=== PATIENT | male | born 1945 | race Caucasian/White ===

== ENCOUNTER 2021-04-23 11:48 | Inpatient (IN) ==
[2021-04-23 13:21] LABS: Hematocrit (blood only) 33.6 % (42-52); Hemoglobin 11.8 g/dL (14.0-18.0); Mean Corpuscular Hemoglobin 31.2 pg (25-34); Mean Corpuscular Hgb Conc 35.1 g/dL (32-36); Mean Corpuscular Volume 88.9 fL (80-100); Mean Platelet Volume 8.6 fL (7.4-10.4); Platelet Count 454 K/uL (130-400); RDW Standard Deviation 45.4 fL (36.4-46.3); Red Blood Count 3.78 M/uL (4.7-6.1); White Blood Count 14.44 K/uL (4.8-10.8)
[2021-04-23] MEDS ORDERED: SODIUM CHLORIDE 0.9% 1000ML 2,000 ML IV ONE (13:26)
[2021-04-23] MEDS ORDERED: ONDANSETRON INJ 2 MG/ML 2 ML VIAL IV STA (13:26)
[2021-04-23 13:42] LABS: BUN Creatinine Ratio 71.1 (10-20); Calcium 8.9 mg/dl (8.5-10.1); Est GFR (African American) 135.2 ml/min; Est GFR (Non-African American) 116.6 ml/min; Potassium 3.4 mmol/L (3.5-5.1)
--- NOTE | 2021-04-23 13:42 | Emergency Department Note ---
History of Present Illness General Chief complaint: Nausea Stated complaint: n/v/d Time Seen by Provider: 04/23/21 13:25 History of Present Illness Maximum Pain Intensity: 3 75-year-old male presents to the ED with a chief complaint of vomiting and diarrhea for the past couple of days. He states that his last episode of each was yesterday. He reports decreased energy. He has also had decreased p.o. intake and appetite for the past couple of days. He states that he has had some intermittent symptoms similar to this in the recent past as well. He reports history of alcohol abuse but stopped drinking alcohol 1995. The patient whispers because he states that he has some hoarseness of his voice from vomiting. He reports significantly generalized weakness. Home Medications Medication Instructions Recorded Confirmed Type FERROUS SULFATE 325 mg PO OCC #0 07/04/13 History CARVEDILOL (COREG) 6.25 mg PO BID 30 Days #0 tab 09/10/13 Rx DOCUSATE SODIUM (COLACE) 100 mg PO BID 30 Days #0 cap 09/10/13 Rx LISINOPRIL 5 mg PO QAM 30 Days #0 tab 09/10/13 Rx LORAZEPAM 1 mg PO BID 30 Days #0 tab 09/10/13 Rx MAGNESIUM OXIDE (MAG-OXIDE) 400 mg PO QAM 30 Days #0 tab 09/10/13 Rx Omeprazole (Prilosec) 40 mg PO DAILY #0 cap 07/15/14 History Oxycodone Ir (Roxicodone Ir) 5 mg PO Q6H PRN 10 Days #0 tab 07/15/14 Rx Ranitidine (Zantac) 150 mg PO DAILY #0 tab 07/15/14 History SENNOSIDES 1 tab PO DAILY #0 07/15/14 History Thiamine Hcl (Vitamin B-1) 100 mg PO DAILY #0 tab 07/15/14 History Lidocaine 1 patch TRANSDERMAL DAILY@09 PRN 07/19/14 Rx #20 Allergies Allergy/AdvReac Type Severity Reaction Status Date / Time gluten Allergy Intermediate Hx of Unverified 07/15/14 11:34 Celiac Disease Past Med/Surg History Social History Smoking Status: Former smoker Tobacco Type: Cigarettes Feels Safe at Home: Yes Review of Systems A total of 10 systems reviewed and were otherwise negative Physical Exam Vital Signs Vital Signs - 24 hr 08/01/21 11:47 04/23/21 15:06 Temperature 37.2 C Temperature Source Oral Pulse Rate 98 H Pulse Rate [Right Finger] 88 Respiratory Rate 26 H 20 Respiratory Effort / Characteristics Non-Labored Non-Labored Respiratory Depth Normal Normal Blood Pressure 94/72 L Blood Pressure [Right Arm] 129/82 Blood Pressure Mean 79 Blood Pressure Mean [Right Arm] 97 Pulse Oximetry 100 99 Oxygen Delivery Method Room Air Room Air Sepsis Recent Fever Within 48 Hours No Sepsis New/Unexplained Change in Mental Status N/A Sepsis Action Taken by Nursing No Action Required CONSTITUTIONAL/VITAL SIGNS: Reviewed / noted above. GENERAL: Non-toxic in appearance. Patient whispers when he speaks. INTEGUMENTARY: Warm, dry, and [place]. HEAD: Normocephalic. EYES: without scleral icterus or trauma. ENT/OROPHARYNX: clear and dry. LYMPHADENOPATHY/NECK: Is supple without lymphadenopathy or meningismus. RESPIRATORY: Clear to auscultation bilaterally. No increased work of breathing. CARDIOVASCULAR: Regular rate and rhythm. GI/ABDOMEN: Soft and nontender. There is a palpable mass noted in the right upper quadrant. It is nontender. EXTREMITIES: Warm and well perfused. BACK: No CVA tenderness. NEUROLOGICAL: Intact without focal deficits. PSYCHIATRIC: normal affect. MUSCULOSKELETAL: Normally developed with good muscle tone. TRIAGE NURSING DOCUMENTATION REVIEWED. Course Administered Medications Discontinued Medications Sodium Chloride (Nss 1000ml) 2,000 mls @ 999 mls/hr IV .Q2H1M ONE Stop: 04/23/21 15:26 Last Admin: 04/23/21 13:42 Dose: 999 mls/hr Documented by: [id number] Ioversol (Optiray 320 100ml) 93 ml IV ONCE ONE Stop: 04/23/21 13:44 Last Admin: 04/23/21 13:43 Dose: 93 ml Documented by: [id number] Ondansetron HCl (Ondansetron Inj 2 Mg/Ml 2 Ml Vial) 4 mg IV NOW STA Stop: 04/23/21 13:27 Last Admin: 04/23/21 13:42 Dose: 4 mg Documented by: [id number] Medical Decision Making Differential Diagnosis Differential includes acute coronary syndrome, myocardial infarction, CVA, TIA, anemia, infection, pneumonia, UTI, pyelonephritis, poor nutrition, dehydration, electrolyte disturbance,hypoglycemia. Medical Records Attestation: I reviewed the patient's medical records. Home Medications Current Medication List: was personally reviewed by me Laboratory Data Attestation: I reviewed the patient's lab results. Result diagrams: 04/23/21 13:10 04/23/21 13:10 Lab Results 04/23/21 04/23/21 04/23/21 Range/Units 13:10 13:10 14:11 WBC 14.44 H (4.8-10.8) K/uL RBC 3.78 L (4.7-6.1) M/uL Hgb 11.8 L (14.0-18.0) g/dL Hct 33.6 L (42-52) % MCV 88.9 (80-100) fL MCH 31.2 (25-34) pg MCHC 35.1 (32-36) g/dL RDW Std Deviation 45.4 (36.4-46.3) fL RDW Coeff of [place] 14.0 (11.5-14.5) % Plt Count 454 H (130-400) K/uL MPV 8.6 (7.4-10.4) fL Immature Gran % (Auto) 0.4 % Neut % (Auto) 84.7 % Lymph % (Auto) 8.4 % [place] % (Auto) 6.4 % Eos % (Auto) 0.0 % Baso % (Auto) 0.1 % Neut # (Auto) 12.23 H (1.4-6.5) K/uL Lymph # (Auto) 1.22 (1.2-3.4) K/uL [place] # (Auto) 0.92 H (0.11-0.59) K/uL Eos # (Auto) 0.00 (0-0.5) K/uL Baso # (Auto) 0.01 (0-0.2) K/uL Immature Gran # (Auto) 0.06 H (0.00-0.02) K/uL PT 14.2 H (9.0-12.0) Seconds INR 1.4 H (0.9-1.1) Sodium 129 L (136-145) mmol/L Potassium 3.4 L (3.5-5.1) mmol/L Chloride 93 L (98-107) mmol/L Carbon Dioxide 29 (21-32) mmol/L Anion Gap 7.0 (3-11) BUN 29 H (7-18) mg/dl Creatinine 0.41 L (0.6-1.4) mg/dl Est Cr Clr Drug Dosing 150.0 ml/min Est GFR ( Amer) 135.2 ml/min Est GFR (Non-Af Amer) 116.6 ml/min BUN/Creatinine Ratio 71.1 H (10-20) Glucose 126 H (70-99) mg/dl Calcium 8.9 (8.5-10.1) mg/dl Total Bilirubin 1.2 H (0.2-1) mg/dl AST 96 H (15-37) U/L ALT 34 (12-78) U/L Alkaline Phosphatase 220 H (45-117) U/L Total Protein 6.1 L (6.4-8.2) gm/dl Albumin 3.0 L (3.4-5.0) gm/dl Globulin 3.1 (2.5-4.0) gm/dl Albumin/Globulin Ratio 1.0 (0.9-2) Lipase 128 (73-393) U/L Imaging Data Radiologist's Impression: Abdomen/Pelvis CT 04/23/21 13:[address] WITH IV CONTRAST CT DOSE: 477.29 mGycm HISTORY: Acute nausea with vomiting and right upper quadrant abdominal pain v/d, lump in ruq TECHNIQUE: Multiaxial CT images of the abdomen and pelvis were performed following the IV administration of 93 cc of Optiray, A dose lowering technique was utilized adhering to the principles of ALARA. COMPARISON STUDY: Chest radiograph 03/06/2015, CTA chest 07/05/2014, CT abdomen and pelvis 11/30/2008. FINDINGS: Calcified granulomata of the left lung base with calcified hilar lymph nodes. Trace layering pleural effusions. Consolidation of the medial segment right middle lobe suggestive of atelectasis. No pneumatosis or pneumoperitoneum. Imaged inferior cardiac chambers are unremarkable with coronary artery calcifications. Unremarkable spleen and adrenal glands. Moderately distended gallbladder. There is a 1.3 cm cystic structure of the pancreatic tail with 11 mm cystic structure of the uncinate process of the pancreatic head, possibly brand representative of sidebranch IPMN's. No pancreatic ductal dilation or solid mass lesion identified. Innumerable hepatic coalescing lesions suggestive of metastasis with areas of suggested central necrosis measure up to 10 mm within the right hepatic lobe resulting in marginal nodularity of the liver suggestive of pseudocirrhosis. There are a few calcified nodules also noted throughout the liver. Trace perihepatic ascites. No portal vein occlusion identified. 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 Age-indeterminate occlusion of the superior mesenteric vein. 6 mm hypodensity of the superior pole left kidney is too small to characterize however suggestive of a probable cyst. Moderate urinary bladder distention with 2.5 mm posterior lateral diverticulum. Prostamegaly. Atherosclerosis of the tortuous aorta. Intrahepatic IVC filter. Coronary varices of the proximal stomach. Mild wall thickening of the duodenum. Lobular irregular mass of the rectum measures 4.2 x 2.8 x 5.2 cm. There is prominence of the perirectal vascul ature with perirectal inflammatory stranding and several small perirectal nodules. No perforation or fluid collection. Colonic diverticulosis. Normal appendix. Tiny fat filled periumbilical hernia. Degenerative changes of the spine, pelvis and hips. No suspicious lytic or blastic osseous lesions pearl ntified. Healed chronic left-sided rib fractures. Numerous compression deformities throughout the thoracolumbar spine without retropulsion are favored to be chronic. IMPRESSION: 1. Rectal mass measuring over 5 cm in length is suggestive of colorectal carcinoma. No perforation or bowel obstruction. 2. 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 3. Trace pleural effusions. 4. 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 Age-indeterminate occlusion of the superior mesenteric vein. 5. Prostamegaly with chronic bladder outlet obstruction. 6. Additional findings as above. ACT 112: Negative or not required by law. The above report was generated using voice recognition software. It may contain grammatical, syntax or spelling errors. Electronically signed by: Hieu Horton M.D. 04/23/2021 2:34 PM ECG Data Attestation: I personally reviewed and interpreted this ECG as follows: MDM Narrative Patient presents with vomiting diarrhea for the past couple of days. None today. Decreased energy. Also reports a mass in the right upper quadrant. Vital signs reveal blood pressure of 94/72. Heart rate 98. He is in no distress on my exam. Does have a mass that is palpable in the right upper quadrant. No abdominal tenderness. Lips and mouth look dry. The patient's hemoglobin today is 11.8. White blood cell count is 14.4. Sodium is 129. BUN is 29. Lipase is negative. INR is 1.4. CT scan of the abdomen pelvis reveals a 5 cm rectal mass suggestive of colorectal cancer and hepatic metastasis. The patient was given IV fluids and IV Zofran. Because of his weakness and the abnormal test results, the patient will be seen by the hospitalist for further inpatient evaluation and care. Impression & Plan Carcinoma of rectum, Metastatic cancer, Nausea vomiting and diarrhea, Generalized muscle weakness, Acute hyponatremia, Acute dehydration Discharge Plan Visit Data Chief Complaint: Nausea Stated Complaint: n/v/d ED Provider: Arnaldo Damon Discharge Problem: Carcinoma of rectum, Metastatic cancer, Nausea vomiting and diarrhea, Generalized muscle weakness, Acute hyponatremia, Acute dehydration Patient Disposition: Being Evaluated by Hospitalist Forms Stand Alone Forms: [facility] Emergency Department, [facility] ortant Visit Information Prescriptions Prescriptions: No Action FERROUS SULFATE 325 MG tablet 325 mg PO OCC Qty: 0 RF: 0 CARVEDILOL (COREG) 3.125 MG tablet 6.25 mg PO BID 30 Days Qty: 0 RF: 0 DOCUSATE SODIUM (COLACE) 100 MG capsule 100 mg PO BID 30 Days Qty: 0 RF: 0 LISINOPRIL 2.5 MG tablet 5 mg PO QAM 30 Days Qty: 0 RF: 0 LORAZEPAM 1 MG tablet 1 mg PO BID 30 Days Qty: 0 RF: 0 MAGNESIUM OXIDE (MAG-OXIDE) 400 MG tablet 400 mg PO QAM 30 Days Qty: 0 RF: 0 Omeprazole (Prilosec) 40 MG CONTR REL CAP 40 mg PO DAILY Qty: 0 RF: 0 Ranitidine (Zantac) 150 MG tablet 150 mg PO DAILY Qty: 0 RF: 0 SENNOSIDES 8.6 MG tablet 1 tab PO DAILY Qty: 0 RF: 0 Thiamine Hcl (Vitamin B-1) 100 MG tablet 100 mg PO DAILY Qty: 0 RF: 0 Oxycodone Ir (Roxicodone Ir) 5 MG tablet 5 mg PO Q6H PRN (Reason: Breakthrough Pain) 10 Days Qty: 0 RF: 0 Lidocaine 1 PATCH TRANSDERM SYS 1 patch Transdermal DAILY@09 PRN (Reason: back pain) Qty: 20 RF: 0 Referrals Referrals: Bakari Cosby MD [Primary Care Provider] -
[2021-04-23] MEDS ORDERED: OPTIRAY 320 100ml IV ONE (13:43)
[2021-04-23 13:45] LABS: Basophils # (auto) 0.01 K/uL (0-0.2); Basophils % (auto) 0.1 %; Bilirubin,Total 1.2 mg/dl (0.2-1); Globulin 3.1 gm/dl (2.5-4.0); Immature Granulocytes # (auto) 0.06 K/uL (0.00-0.02); Immature Granulocytes % (auto) 0.4 %; Lymphocytes # (auto) 1.22 K/uL (1.2-3.4); Lymphocytes % (auto) 8.4 %; Monocytes # (auto) 0.92 K/uL (0.11-0.59); Monocytes % (auto) 6.4 %; Neutrophils # (auto) 12.23 K/uL (1.4-6.5); Neutrophils % (auto) 84.7 %; Total Protein 6.1 gm/dl (6.4-8.2)
--- NOTE | 2021-04-23 14:35 | CT Scan Report ---
ABDOMEN AND PELVIS CT WITH IV CONTRAST CT DOSE: 477.29 mGycm HISTORY: Acute nausea with vomiting and right upper quadrant abdominal pain v/d, lump in ruq TECHNIQUE: Multiaxial CT images of the abdomen and pelvis were performed following the IV administrat ion of 93 cc of Optiray, A dose lowering technique was utilized adhering to the principles of ALARA. COMPARISON STUDY: Chest radiograph 03/06/2015, CTA chest 07/05/2014, CT abdomen and pelvis 11/30/2008. FINDINGS: Calcified granulomata of the left lung base with calcified hilar lymph nodes. Trace layerin g pleural effusions. Consolidation of the medial segment right middle lobe suggestive of atelectasis. No pneumatosis or pneumoperitoneum. Imaged inferior cardiac chambers are unremarkable with coronary artery calcifications. Unremarkable spleen and adrenal glands. Moderately distended gallbladder. There is a 1.[address] ructure of the pancreatic tail with 11 mm cystic structure of the uncinate process of the pancreatic head, possibly guest service representative of sidebranch IPMN's. No pancreatic ductal dilation or solid mass lesio n identified. Innumerable hepatic coalescing lesions suggestive of metastasis with areas of suggested central necrosis measure up to 10 mm within the right hepatic lobe resulting in marginal nodularity of the liver suggestive of pseudocirrhosis. There are a few calcified nodules also noted throughout t he liver. Trace perihepatic ascites. No portal vein occlusion identified. 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 Age-i ndeterminate occlusion of the superior mesenteric vein. 6 mm hypodensity of the superior pole left kidney is too small to characterize however suggestive of a probable cyst. Moderate urinary bladder distention with 2.5 mm posterior lateral diverticulum. Pros tamegaly. Atherosclerosis of the tortuous aorta. Intrahepatic IVC filter. Coronary varices of the pro ximal stomach. Mild wall thickening of the duodenum. Lobular irregular mass of the rectum measures 4. 2 x 2.8 x 5.2 cm. There is prominence of the perirectal vasculature with perirectal inflammatory stra nding and several small perirectal nodules. No perforation or fluid collection. Colonic diverticulosi s. Normal appendix. Tiny fat filled periumbilical hernia. Degenerative changes of the spine, pelvis a nd hips. No suspicious lytic or blastic osseous lesions identified. Healed chronic left-sided rib fra ctures. Numerous compression deformities throughout the thoracolumbar spine without retropulsion are favored to be chronic. IMPRESSION: 1. Rectal mass measuring over 5 cm in length is suggestive of colorectal carcinoma. No perforation or bowel obstruction. 2. 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 3. Trace pleural effusions. 4. 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 Age-indeterminate occlusion of the superior mesenteric vein. 5. Prostamegaly with chronic bladder outlet obstruction. 6. Additional findings as above. ACT 112: Negative or not required by law. The above report was generated using voice recognition software. It may contain grammatical, syntax o r spelling errors. Electronically signed by: Hieu Horton M.D. 04/23/2021 2:34 PM
[2021-04-23 14:48] LABS: INR 1.4 (0.9-1.1); Prothrombin Time 14.2 Seconds (9.0-12.0)
--- NOTE | 2021-04-23 17:27 | History & Physical Report ---
Date of Service April 23, 2021 Assessment & Plan (1) Rectal mass: (2) Metastasis to liver: Plan: This is a 75-year-old male with PMH of history of remote alcohol use with history of esophageal varices, presence of IVC filter, hypertension, hyperlipidemia, anxiety, history of celiac disease, chronic lower back pain and other medical problems listed below who presents with worsening nausea, vomiting and diarrhea over the past few days. CT abd/pelvis with rectal mass measuring over 5 cm in length is suggestive of colorectal carcinoma. 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 Patient seen in collaboration with Dr. Brown. Please see addendum. History of Present Illness Chief Complaint: N/V/D Primary Care Provider: Bakari Cosby MD This is a 75-year-old male with PMH of history of remote alcohol use with history of esophageal varices, presence of IVC filter, hypertension, hyperlipidemia, anxiety, history of celiac disease, chronic lower back pain and other medical problems listed below who presents with worsening nausea, vomiting and diarrhea over the past few days. Endorses intermittent nausea, vomiting and diarrhea over the past 2 months. Also with unintentional weight loss of approximately 40 pounds over past 1.5 years per recent PCP note. Palpable mass on R abdominal wall noticed in the past 2 months. Having difficulty remembering details, which has been getting worse lately. Denies any bright red blood per rectum or black stool. Mainly having diarrhea. Reduced appetite. Taking home meds as scheduled. PCP Dr. Cosby. Allergies Allergy/AdvReac Type Severity Reaction Status Date / Time gluten Allergy Intermediate Hx of Unverified 04/23/21 16:09 Celiac Disease Home Medications Medication Instructions Recorded Confirmed Type albuterol sulfate 90 mcg/actuation 2 puff INHALATION Q4H PRN 04/23/21 04/23/21 History aerosol inhaler ferrous sulfate 325 mg (65 mg 325 mg PO DAILY 04/23/21 04/23/21 History iron) tablet magnesium oxide 400 mg PO DAILY 04/23/21 04/23/21 History omeprazole 40 mg capsule,delayed 40 mg PO DAILY 04/23/21 04/23/21 History release thiamine HCl (vitamin B1) 100 mg 100 mg PO DAILY 04/23/21 04/23/21 History tablet (Vitamin B-1) lorazepam 1 mg tablet 1 mg PO BID #10 tab 05/02/21 Rx oxycodone 5 mg tablet 5 mg PO Q6H PRN #20 tab 05/02/21 Rx Past Med/Surg History Medical History Acute dehydration Acute hyponatremia Anxiety Celiac disease Chronic back pain Dyslipidemia HTN (hypertension) Metastasis to liver Pulmonary embolus Rectal mass Surgical History History of inferior vena caval filter placement Hx of tonsillectomy Family History Other Cancer Hypertension Social History Smoking Status: Former smoker Tobacco Type: Cigarettes Second Hand Exposure: No; Hx Alcohol Use: No (Quit 2015) Hx Substance Use: No Preferred Language: Nigerien Communication Ability: Effective 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 Physical Exam Physical Exam: General Appearance: vitals as above, NAD, sitting up in bed, pleasant, appears chronically ill Head: normocephalic, atraumatic Eyes: normal inspection, PERRL, conjunctivae normal, anicteric sclerae ENT: external ear and nose normal, dry mucous membranes of oropharynx Neck: normal visual inspection, trachea midline, no thyromegaly Respiratory: normal respiratory effort, lungs clear to auscultation, no wheeze, rales, rhonchi. No accessory muscle use Cardiovascular: regular rate, rhythm, no murmur, normal peripheral pulses, no BLE edema. Vessels: no JVD Chest: normal inspection of chest Abdomen/GI: normal bowel sounds, soft, nontender, palpable mass RLQ Extremities/Musculoskeletal: no cyanosis or clubbing, extremities motor strength 5/5 Neurologic: PERRL, EOMI, accommodation nl, no face palsy, no dysarthria, CN's II-XI intact bilaterally and moves all extremities Psychiatric: A+Ox3, euthymic affect Skin: no rashes, normal color, warm/dry Results & Data Results & Data ([facility]) Vital Signs (Past 12 Hours) Vital Signs Temp Pulse Pulse Resp BP BP Pulse Ox 04/23/21 16:56 74 16 130/85 96 04/23/21 15:06 88 20 129/82 99 04/23/21 11:47 37.2 C 98 H 26 H 94/72 L 100 Laboratory Results Short CBC 04/23/21 Range/Units 13:10 WBC 14.44 H (4.8-10.8) K/uL Hgb 11.8 L (14.0-18.0) g/dL Hct 33.6 L (42-52) % Plt Count 454 H (130-400) K/uL BMP 04/23/21 13:10 Sodium 129 L Potassium 3.4 L Chloride 93 L Carbon Dioxide 29 BUN 29 H Creatinine 0.41 L Glucose 126 H Calcium 8.9 Liver Function 04/23/21 Range/Units 13:10 Total Bilirubin 1.2 H (0.2-1) mg/dl AST 96 H (15-37) U/L ALT 34 (12-78) U/L Alkaline Phosphatase 220 H (45-117) U/L Albumin 3.0 L (3.4-5.0) gm/dl Diagnostic Findings Abdomen/Pelvis CT 04/23/21 13:[address] WITH IV CONTRAST CT DOSE: 477.29 mGycm HISTORY: Acute nausea with vomiting and right upper quadrant abdominal pain v/d, lump in ruq TECHNIQUE: Multiaxial CT images of the abdomen and pelvis were performed following the IV administration of 93 cc of Optiray, A dose lowering technique was utilized adhering to the principles of ALARA. COMPARISON STUDY: Chest radiograph 03/06/2015, CTA chest 07/05/2014, CT abdomen and pelvis 11/30/2008. FINDINGS: Calcified granulomata of the left lung base with calcified hilar lymph nodes. Trace layering pleural effusions. Consolidation of the medial segment right middle lobe suggestive of atelectasis. No pneumatosis or pneumoperitoneum. Imaged inferior cardiac chambers are unremarkable with coronary artery calcifications. Unremarkable spleen and adrenal glands. Moderately distended gallbladder. There is a 1.3 cm cystic structure of the pancreatic tail with 11 mm cystic structure of the uncinate process of the pancreatic head, possibly senior sales representative of sidebranch IPMN's. No pancreatic ductal dilation or solid mass lesion identified. Innumerable hepatic coalescing lesions suggestive of metastasis with areas of suggested central necrosis measure up to 10 mm within the right hepatic lobe resulting in marginal nodularity of the liver suggestive of pseudocirrhosis. There are a few calcified nodules also noted throughout the liver. Trace perihepatic ascites. No portal vein occlusion identified. 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 Age-indeterminate occlusion of the superior mesenteric vein. 6 mm hypodensity of the superior pole left kidney is too small to characterize however suggestive of a probable cyst. Moderate urinary bladder distention with 2.5 mm posterior lateral diverticulum. Prostamegaly. Atherosclerosis of the tortuous aorta. Intrahepatic IVC filter. Coronary varices of the proximal stomach. Mild wall thickening of the duodenum. Lobular irregular mass of the rectum measures 4.2 x 2.8 x 5.2 cm. There is prominence of the perirectal vasculature with perirectal inflammatory stranding and several small perirectal nodules. No perforation or fluid collection. Colonic diverticulosis. Normal appendix. Tiny fat filled periumbilical hernia. Degenerative changes of the spine, pelvis and hips. No suspicious lytic or blastic osseous lesions identified. Healed chronic left-sided rib fractures. Numerous compression deformities throughout the thoracolumbar spine without retropulsion are favored to be chronic. IMPRESSION: 1. Rectal mass measuring over 5 cm in length is suggestive of colorectal carcinoma. No perforation or bowel obstruction. 2. 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 3. Trace pleural effusions. 4. 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 Age-indeterminate occlusion of the superior mesenteric vein. 5. Prostamegaly with chronic bladder outlet obstruction. 6. Additional findings as above. ACT 112: Negative or not required by law. The above report was generated using voice recognition software. It may contain grammatical, syntax or spelling errors. Electronically signed by: Hieu Horton M.D. 04/23/2021 2:34 PM Code Status & VTE Plan VTE Prophylaxis Plan VTE Prophylaxis will be ordered: Yes Supervising Physician Co-Signing Physician Notes Pt was seen and examined. Agreed with Melia Campbell PA-C exam, assessment and paige n. 75-year-old male with PMH of history of remote alcohol use with history of esophageal varices, presence of IVC filter, hypertension, hyperlipidemia, anxiety, history of celiac disease, chronic lower back pain presents with worsening nausea, vomiting and diarrhea over the past few days. Pt said that he he has been having diarrhea, nausea and vomiting for over 2 months. He has not been able to keep anything in his belly. Pt loss about 40 lbs in the past year. he said that he noticed his stool has been dark brown. He voice his soft and hoarse from vomiting alot. In the ER CT abd/pelvis showed rectal mass measuring over 5 cm in length is suggestive of colorectal carcinoma. No perforation or bowel obstruction. 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 Received IVF and antiemetic med. Electrolytes replaced. Continue IV med. Will start on clear liquid diet and NPO after midnight. Will consult gastro and oncology in am. Continue monitor electrolytes. Will monitor closely. MD Kevin
[2021-04-23] MEDS ORDERED: ALBUTEROL HFA 8 GM INHALER INH PRN (20:26)
[2021-04-23] MEDS ORDERED: POTASSIUM CHLORIDE 40 MEQ in SODIUM CHLORIDE 0.9% 1000ML 1,000 ML IV SCH (20:26)
[2021-04-23] MEDS ORDERED: ONDANSETRON INJ 2 MG/ML 2 ML VIAL IV PRN (20:26)
[2021-04-23] MEDS: ENOXAPARIN INJ 40 MG/0.4 ML SYR SQ SCH (22:03)
[2021-04-23] MEDS: LORazepam 1 MG TAB PO SCH (22:04)
[2021-04-24 06:24] LABS: Hematocrit (blood only) 30.7 % (42-52); Hemoglobin 10.5 g/dL (14.0-18.0); Mean Corpuscular Hemoglobin 31.3 pg (25-34); Mean Corpuscular Hgb Conc 34.2 g/dL (32-36); Mean Corpuscular Volume 91.4 fL (80-100); Mean Platelet Volume 8.9 fL (7.4-10.4); Platelet Count 339 K/uL (130-400); RDW Coefficient of Variation 14.3 % (11.5-14.5); RDW Standard Deviation 47.5 fL (36.4-46.3); Red Blood Count 3.36 M/uL (4.7-6.1); White Blood Count 13.59 K/uL (4.8-10.8)
[2021-04-24 06:46] LABS: Albumin Globulin Ratio 0.9 (0.9-2); Albumin Level 2.6 gm/dl (3.4-5.0); BUN Creatinine Ratio 40.9 (10-20); Calcium 8.3 mg/dl (8.5-10.1); Creatinine Clr Calc Pharmacy 148.4 ml/min; Est GFR (African American) 135.2 ml/min; Est GFR (Non-African American) 116.6 ml/min; Globulin 2.8 gm/dl (2.5-4.0); Potassium 3.6 mmol/L (3.5-5.1); Total Protein 5.4 gm/dl (6.4-8.2)
[2021-04-24] MEDS: THIAMINE HCL 100 MG TAB PO SCH (08:38)
[2021-04-24] MEDS: lisinopril 5 MG TAB PO SCH (08:38)
[2021-04-24] MEDS: MAGNESIUM OXIDE 400 MG TAB PO SCH (08:39)
[2021-04-24] MEDS: FERROUS SULFATE 325 MG TAB PO SCH (08:39)
[2021-04-24] MEDS: PANTOprazole 40 MG TAB PO SCH (08:39)
--- NOTE | 2021-04-24 08:48 | Gastrointestinal Consultation ---
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 He is deferring examination. I did ask hi m to think about diagnostic endoscopy and to let our service know. He did ask me to call his , I was able to reach her and discuss. She notes their daughter is en route to [place] and would discuss with her father when she arrives. Recall as needed. Thank you for allowing us to participate in the care of this patient. Please call with any acute changes, questions or concerns. Please see addendum below with additional recommendation from my supervising physician. Supervising Physician Co-Signing Physician Notes I have seen and examined the patient with BILL Reagan whose note reflects our findings and plan. Patient with multiple comorbidities including cirrhosis admitted with nuasea and vomiting noted to have large rectal mass on imaging and lesions in the liver. Never had a colonoscopy. abd exam with palpable mass. Patient cardona snot want a colonoscopy but has agreed to discuss further with his daughter and . attempted to discuss with but she is unsure and will talk with her . History of Present Illness Reason for Consultation: colon mass Requesting Physician: Kevin Attending Physician: Lance Brown MD History of Present Illness 75 year old male with history of dyslipidemia, cirrhosis, celiac other below who is admitted w/ vomiting and diarrhea - GI asked to evaluate for rectal mass. Pt is a poor historian. Notes that he has had decreased appetite and weight loss for sometime but cannot specify how long or how much weight. Review of records suggests nearly 45 lbs. Over the past few days has had emesis and loose stools but denies any coffee ground emesis, hematemesis, melena or hematochezia. No fever, chills, CP, SOB. CTAP 2020: Rectal mass measuring over 5 cm in length is suggestive of colorectal carcinoma. No perforation or bowel obstruction. 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 Age-indeterminate occlusion of the superior mesenteric vein.Prostamegaly with chronic bladder outlet obstruction. [id number]: LA Grade D reflux esophagitis. - Hiatus hernia. - Type 1 isolated gastric varices (IGV1, varices located in the fundus), without bleeding. - One duodenal ulcer in the third portion oozing blood. Injected. Coagulation for hemostasis was successful. EGD 2012: Moderately severe distal esophagitis. - Hiatus hernia. - Type 1 isolated gastric varices (IGV1, varices located in the fundus), with retained clips. - Nodular mucosa at 2nd part of the duodenum. Biopsied. EGD 2012: Esophagitis, with ring at GE junction and shallow GE junction ulcer. No esophageal varices. No active bleeding. Small gastric varices in proximal body of stomach. Prominent fold (gastric varix) in fundus of stomach with small ulcer and pigmented spot. This was clipped. Hemostasis was achieved. Duodenal changes suggestive of sprue or portal enteropathy. Allergies Allergy/AdvReac Type Severity Reaction Status Date / Time gluten Allergy Intermediate Hx of Unverified 04/23/21 16:09 Celiac Disease Home Medications Medication Instructions Recorded Confirmed Type albuterol sulfate 90 mcg/actuation 2 puff INHALATION Q4H PRN 04/23/21 04/23/21 History aerosol inhaler ferrous sulfate 325 mg (65 mg 325 mg PO DAILY 04/23/21 04/23/21 History iron) tablet lisinopril 5 mg tablet 5 mg PO DAILY 04/23/21 04/23/21 History lorazepam 1 mg tablet 1 mg PO BID 04/23/21 04/23/21 History magnesium oxide 400 mg PO DAILY 04/23/21 04/23/21 History omeprazole 40 mg capsule,delayed 40 mg PO DAILY 04/23/21 04/23/21 History release oxycodone 5 mg tablet 5 mg PO Q6H PRN 04/23/21 04/23/21 History thiamine HCl (vitamin B1) 100 mg 100 mg PO DAILY 04/23/21 04/23/21 History tablet (Vitamin B-1) Patient History Medical History (Updated 04/23/21 @ 19:08 by Melia Campbell PA-C) Anxiety Celiac disease Chronic back pain Dyslipidemia HTN (hypertension) Pulmonary embolus Surgical History (Updated 04/23/21 @ 19:06 by Melia Campbell PA-C) History of inferior vena caval filter placement Hx of tonsillectomy Family History Other Cancer Hypertension Social History (Updated 04/23/21 @ 19:07 by Melia Campbell PA-C) Smoking Status: Former smoker Tobacco Type: Cigarettes Second Hand Exposure: No; Do You Dip or Chew Tobacco: No; Tobacco Cessation Education Requested by Patient: No Hx Alcohol Use: No Hx Substance Use: No Preferred Language: Upper Sorbian Communication Ability: Effective 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 Beliefs That Will Affect Care: None Current Living Situation: Spouse Other Information That Helps Us Care for You: No Feels Safe at Home: Yes Safety Concerns: Feels Safe At This Time Assistive Devices: Glasses Review of Systems Review of Systems: All systems reviewed & are unremarkable except as noted in HPI & below Physical Exam Constitutional: Pt appears chronically ill, cachetic but in no acute distress Respiratory: normal respiratory effort, lungs clear to auscultation Cardiovascular: RRR, no murmur, no edema Gastrointestinal (Abdomen): Soft, nontender, palpable mass R abd Skin: no rashes, warm and dry Results & Data ([facility]) Vital Signs (Past 12 Hours) Vital Signs Temp Pulse Pulse Resp BP Pulse Ox 04/24/21 07:46 67 04/24/21 07:41 36.8 C 77 16 120/68 92 04/24/21 03:04 36.5 C 62 18 137/72 96 04/23/21 23:08 36.6 C 93 H 18 133/75 99 04/23/21 21:33 36.9 C 78 127/78 98 Laboratory Results 04/24/21 04/24/21 04/23/21 Range/Units 05:53 05:53 17:30 WBC 13.59 H (4.8-10.8) K/uL RBC 3.36 L (4.7-6.1) M/uL Hgb 10.5 L (14.0-18.0) g/dL Hct 30.7 L (42-52) % MCV 91.4 (80-100) fL MCH 31.3 (25-34) pg MCHC 34.2 (32-36) g/dL RDW Std Deviation 47.5 H (36.4-46.3) fL RDW Coeff of Soraida 14.3 (11.5-14.5) % Plt Count 339 (130-400) K/uL MPV 8.9 (7.4-10.4) fL Immature Gran % (Auto) % Neut % (Auto) % Lymph % (Auto) % Centre % (Auto) % Eos % (Auto) % Baso % (Auto) % Neut # (Auto) (1.4-6.5) K/uL Lymph # (Auto) (1.2-3.4) K/uL Centre # (Auto) (0.11-0.59) K/uL Eos # (Auto) (0-0.5) K/uL Baso # (Auto) (0-0.2) K/uL Immature Gran # (Auto) (0.00-0.02) K/uL PT (9.0-12.0) Seconds INR (0.9-1.1) Sodium 137 D (136-145) mmol/L Potassium 3.6 (3.5-5.1) mmol/L Chloride 102 (98-107) mmol/L Carbon Dioxide 28 (21-32) mmol/L Anion Gap 7.0 (3-11) BUN 17 (7-18) mg/dl Creatinine 0.41 L (0.6-1.4) mg/dl Est Cr Clr Drug Dosing 148.4 ml/min Est GFR ( Amer) 135.2 ml/min Est GFR (Non-Af Amer) 116.6 ml/min BUN/Creatinine Ratio 40.9 H (10-20) Glucose 92 (70-99) mg/dl Calcium 8.3 L (8.5-10.1) mg/dl Total Bilirubin 1.0 (0.2-1) mg/dl AST 104 H (15-37) U/L ALT 31 (12-78) U/L Alkaline Phosphatase 221 H (45-117) U/L Total Protein 5.4 L (6.4-8.2) gm/dl Albumin 2.6 L (3.4-5.0) gm/dl Globulin 2.8 (2.5-4.0) gm/dl Albumin/Globulin Ratio 0.9 (0.9-2) Lipase (73-393) U/L COVID-19 Eval Order SARS-CoV-2 (PCR) NEGATIVE (Negative) 04/23/21 04/23/21 04/23/21 Range/Units 17:30 14:11 13:10 WBC (4.8-10.8) K/uL RBC (4.7-6.1) M/uL Hgb (14.0-18.0) g/dL Hct (42-52) % MCV (80-100) fL MCH (25-34) pg MCHC (32-36) g/dL RDW Std Deviation (36.4-46.3) fL RDW Coeff of Soraida (11.5-14.5) % Plt Count (130-400) K/uL MPV (7.4-10.4) fL Immature Gran % (Auto) % Neut % (Auto) % Lymph % (Auto) % Centre % (Auto) % Eos % (Auto) % Baso % (Auto) % Neut # (Auto) (1.4-6.5) K/uL Lymph # (Auto) (1.2-3.4) K/uL Centre # (Auto) (0.11-0.59) K/uL Eos # (Auto) (0-0.5) K/uL Baso # (Auto) (0-0.2) K/uL Immature Gran # (Auto) (0.00-0.02) K/uL PT 14.2 H (9.0-12.0) Seconds INR 1.4 H (0.9-1.1) Sodium 129 L (136-145) mmol/L Potassium 3.4 L (3.5-5.1) mmol/L Chloride 93 L (98-107) mmol/L Carbon Dioxide 29 (21-32) mmol/L Anion Gap 7.0 (3-11) BUN 29 H (7-18) mg/dl Creatinine 0.41 L (0.6-1.4) mg/dl Est Cr Clr Drug Dosing 150.0 ml/min Est GFR ( Amer) 135.2 ml/min Est GFR (Non-Af Amer) 116.6 ml/min BUN/Creatinine Ratio 71.1 H (10-20) Glucose 126 H (70-99) mg/dl Calcium 8.9 (8.5-10.1) mg/dl Total Bilirubin 1.2 H (0.2-1) mg/dl AST 96 H (15-37) U/L ALT 34 (12-78) U/L Alkaline Phosphatase 220 H (45-117) U/L Total Protein 6.1 L (6.4-8.2) gm/dl Albumin 3.0 L (3.4-5.0) gm/dl Globulin 3.1 (2.5-4.0) gm/dl Albumin/Globulin Ratio 1.0 (0.9-2) Lipase 128 (73-393) U/L COVID-19 Eval Order Covid19 at [facility] SARS-CoV-2 (PCR) (Negative) 04/23/21 Range/Units 13:10 WBC 14.44 H (4.8-10.8) K/uL RBC 3.78 L (4.7-6.1) M/uL Hgb 11.8 L (14.0-18.0) g/dL Hct 33.6 L (42-52) % MCV 88.9 (80-100) fL MCH 31.2 (25-34) pg MCHC 35.1 (32-36) g/dL RDW Std Deviation 45.4 (36.4-46.3) fL RDW Coeff of Soraida 14.0 (11.5-14.5) % Plt Count 454 H (130-400) K/uL MPV 8.6 (7.4-10.4) fL Immature Gran % (Auto) 0.4 % Neut % (Auto) 84.7 % Lymph % (Auto) 8.4 % Centre % (Auto) 6.4 % Eos % (Auto) 0.0 % Baso % (Auto) 0.1 % Neut # (Auto) 12.23 H (1.4-6.5) K/uL Lymph # (Auto) 1.22 (1.2-3.4) K/uL Centre # (Auto) 0.92 H (0.11-0.59) K/uL Eos # (Auto) 0.00 (0-0.5) K/uL Baso # (Auto) 0.01 (0-0.2) K/uL Immature Gran # (Auto) 0.06 H (0.00-0.02) K/uL PT (9.0-12.0) Seconds INR (0.9-1.1) Sodium (136-145) mmol/L Potassium (3.5-5.1) mmol/L Chloride (98-107) mmol/L Carbon Dioxide (21-32) mmol/L Anion Gap (3-11) BUN (7-18) mg/dl Creatinine (0.6-1.4) mg/dl Est Cr Clr Drug Dosing ml/min Est GFR ( Amer) ml/min Est GFR (Non-Af Amer) ml/min BUN/Creatinine Ratio (10-20) Glucose (70-99) mg/dl Calcium (8.5-10.1) mg/dl Total Bilirubin (0.2-1) mg/dl AST (15-37) U/L ALT (12-78) U/L Alkaline Phosphatase (45-117) U/L Total Protein (6.4-8.2) gm/dl Albumin (3.4-5.0) gm/dl Globulin (2.5-4.0) gm/dl Albumin/Globulin Ratio (0.9-2) Lipase (73-393) U/L COVID-19 Eval Order SARS-CoV-2 (PCR) (Negative)
[2021-04-24] MEDS: LORazepam 1 MG TAB PO SCH ×2 (08:50→21:29)
--- NOTE | 2021-04-24 09:18 | CT Scan Report ---
CT head/brain wo con CLINICAL HISTORY: confusion COMPARISON STUDY: September 02, 2013 TECHNIQUE: Axial CT of the brain is performed from the vertex to the skull base. IV contrast was not administered for this examination. A dose lowering technique was utilized adhering to the principles of ALARA. CT DOSE: 556.16 mGycm FINDINGS: No intra or extra-axial mass lesions are visualized. There is no CT evidence of acute cortical infarc tion. There is no evidence of midline shift. There is no acute hemorrhage. No acute depressed calvar ial fractures are visualized. Redemonstration of ill-defined area of decreased attenuation within subcortical white matter of the r ight parietal lobe, was also seen during prior study likely representing old infarct. Stable mild atrophic changes of brain parenchyma are seen and associated with minimal ex vacuo dilata tion of ventricles. Stable mild contour deformity of the proximal aspect of the occipital horn of the left lateral ventri asim is again seen likely representing small arachnoid cyst, findings are unchanged since 2013. Coarse calcifications of the falx are unchanged since 2013. The bset cisterna magna is again seen. Small polyp of the left maxillary sinus is seen. The rest of visualized paranasal sinuses and mastoid air cells are patent and well-aerated. IMPRESSION: 1. No acute intracranial hemorrhage, no midline shift or space occupying lesions. 2. Mild atrophic changes of brain parenchyma associated with minimal ex vacuo dilatation of ventricl es. Possible small stable arachnoid cyst within left ventricle. 3. Unchanged infarct within right parietal lobe. 4. Best cisterna magna. 5. No acute depressed skull fractures. 6. The rest of findings as above. ACT 112: Negative or not required by law. The above report was generated using voice recognition software. It may contain grammatical, syntax o r spelling errors. Electronically signed by: Melany Rao DO 04/24/2021 9:16 AM
[2021-04-24] MEDS: ENOXAPARIN INJ 40 MG/0.4 ML SYR SQ SCH (21:28)
--- NOTE | 2021-04-24 22:50 | Hospitalist Progress Note ---
Date of Service April 24, 2021 Assessment & Plan (1) Rectal mass: Plan: This is a 75-year-old male with PMH of history of remote alcohol use with history of esophageal varices, presence of IVC filter, hypertension, hyperlipidemia, anxiety, history of celiac disease, chronic lower back pain and other medical problems listed below who presents with worsening nausea, vomiting and diarrhea over the past few days. CT abd/pelvis showed rectal mass measuring over 5 cm in length concerning for colorectal carcinoma. 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 with trace perihepatic ascites Gastro on board Plan to proceed with colonoscopy Continue clear liquid diet Bowel prep as per GI (2) Nausea vomiting and diarrhea: Plan: Continue IV fluids, Continue clear liquid diet Clinically improved (3) Acute hyponatremia: Plan: Na on admission 129 Received IVF Na 137 today Continue monitor BMP (4) Hypokalemia: Plan: Potassium 3.4 on admission K 3.6 today Continue monitor BMP (5) HTN (hypertension): Plan: Normotensive Continue lisinopril (6) Anxiety: Plan: On Ativan (7) Chronic back pain: Plan: Continue home oxycodone PRN DVT Ppx: SQ Lovenox Code status: FULL Admission and Anticipated Discharge Date Admission Date: April 23, 2021 Subjective Patient was seen and examined for follow-up of nausea and vomiting Lying in bed with no distress resting comfortable Spoke to and daughter at bedside and said this is the first time patient had been able to rest without vomiting in the last few weeks. He is having sore throat and daughter said that pt would proceed with the scope Denies any chest pain, palpitation, dizziness and SOB Physical Exam Physical Exam: General- No acute distress, cachetic Head- atraumatic Eyes- PERRL, EOMI, ENT- oropharynx clear Neck- supple, no JVD Lungs- clear to auscultation Heart- regular rhythm; no murmur Abdomen- normal bowel sounds, soft, +palpable mass R side of the abdomen Extremities- no calf tenderness Neuro- alert, oriented x 3; PERRL, EOMI; no facial palsy; no dysarthria Skin- warm & dry Results & Data Results & Data ([facility]) Vital Signs (Past 12 Hours) Vital Signs Temp Pulse Pulse Resp BP Pulse Ox 04/24/21 18:40 37.0 C 74 16 116/76 97 04/24/21 16:00 74 04/24/21 15:40 36.6 C 84 16 119/79 96 04/24/21 11:16 36.6 C 71 16 117/74 92
--- NOTE | 2021-04-25 08:42 | Communication Note ---
Date of Service: April 25, 2021 GI was asked to re-evaluate as after family discussion yesterday a discussion was made to move forward with a colonoscopy. This morning, I was discussion prep and colonoscopy with patient and he is no longer in agreement with the evaluation. Can continue clear liquids. I did attempt to conact , but no answer this AM. If he elects for colonoscopy, please re-call GI. Will sign off.
[2021-04-25] MEDS: CHLORASEPTIC 1.4% SOLN 180 ML BTL MT PRN (08:56)
[2021-04-25] MEDS: LORazepam 1 MG TAB PO SCH ×2 (08:56→21:56)
[2021-04-25] MEDS: PANTOprazole 40 MG TAB PO SCH (08:57)
[2021-04-25] MEDS: MAGNESIUM OXIDE 400 MG TAB PO SCH (08:57)
[2021-04-25] MEDS: THIAMINE HCL 100 MG TAB PO SCH (08:57)
[2021-04-25] MEDS: FERROUS SULFATE 325 MG TAB PO SCH (08:57)
[2021-04-25] MEDS: lisinopril 5 MG TAB PO SCH (08:57)
[2021-04-25 09:09] LABS: Hematocrit (blood only) 31.4 % (42-52); Hemoglobin 10.6 g/dL (14.0-18.0); Mean Corpuscular Hemoglobin 31.6 pg (25-34); Mean Corpuscular Hgb Conc 33.8 g/dL (32-36); Mean Corpuscular Volume 93.7 fL (80-100); Mean Platelet Volume 8.3 fL (7.4-10.4); Platelet Count 342 K/uL (130-400); RDW Coefficient of Variation 14.7 % (11.5-14.5); RDW Standard Deviation 50.2 fL (36.4-46.3); Red Blood Count 3.35 M/uL (4.7-6.1); White Blood Count 10.53 K/uL (4.8-10.8)
[2021-04-25 09:51] LABS: Albumin Globulin Ratio 0.9 (0.9-2); Albumin Level 2.5 gm/dl (3.4-5.0); BUN Creatinine Ratio 26.6 (10-20); Calcium 8.5 mg/dl (8.5-10.1); Creatinine Clr Calc Pharmacy 121.2 ml/min; Est GFR (African American) 124.6 ml/min; Est GFR (Non-African American) 107.5 ml/min; Globulin 2.9 gm/dl (2.5-4.0); Total Protein 5.4 gm/dl (6.4-8.2)
--- NOTE | 2021-04-25 11:04 | Consultation Report ---
MEDICAL ONCOLOGY CONSULTATION DATE OF SERVICE: 04/25/2021 REASON FOR CONSULTATION: Probable metastatic colorectal cancer. HISTORY OF PRESENT ILLNESS: I had the pleasure of visiting with Mr. Michael Mcguire at bedside this m orning. Michael is very soft spoken and I could elicit a little further information from him this morn ing. Thus, relying predominantly on medical records leading up to today's consultation. This gentle man was admitted to [facility] on 04/23/2021 with history of chronic low back pain, intermittent nausea and vomiting, unintentional weight loss of about 40 pounds he estimates over the past year and a half. Apparently, there is a palpable mass in the right abdominal wall. The patien t denied any overt signs of gastrointestinal bleeding or change in stool quality. That said, he unde rwent extensive laboratory and radiographic investigation, which included a CT scan of the abdomen an d pelvis. There is a rectal mass measuring approximately 5 cm, suggestive of primary disease and inn umerable hepatic metastatic disease resulting in pseudocirrhosis and trace perihepatic ascites. I am seeing no evidence of actual biopsy was carried out, and after inquisition, Michael understands he pro bably suffers from metastatic disease and is not enthusiastic about pursuing any form of treatment. That said, primary service is requesting a consultation to discuss possible therapeutic approaches mo ving forward. PAST MEDICAL HISTORY: Significant for anxiety, celiac disease, chronic back pain, dyslipidemia, hype rtension, pulmonary embolus. PAST SURGICAL HISTORY: Includes inferior vena caval filter placement and tonsillectomy. CURRENT MEDICATIONS: Include albuterol inhaler 2 puffs inhaled q.4 hours p.r.n., ferrous sulfate 325 mg p.o. daily, lisinopril 5 mg p.o. daily, lorazepam 1 mg p.o. b.i.d., magnesium oxide 400 mg p.o. d aily, omeprazole 40 mg p.o. daily, oxycodone 5 mg p.o. q.6 hours p.r.n., thiamine 100 mg p.o. daily. ALLERGIES: GLUTEN. SOCIAL HISTORY: He is a former cigarette smoker and he apparently was an alcoholic until 2016. FAMILY HISTORY: Positive for cancer and hypertension. REVIEW OF SYSTEMS: Again, unobtainable as the patient minimally verbalizes during today's encounter. PHYSICAL EXAMINATION: GENERAL: Cachectic-appearing 75-year-old gentleman looks a bit older than his stated age, in no acute distress. VITAL SIGNS: Temperature 36.9, pulse 72, respiratory rate 16, blood pressure 108/68. SKIN: Warm, dry, noncyanotic without petechia, rash or ecchymosis. HEENT: Head atraumatic, normocephalic. Eyes: PERRLA. EOMI. Sclerae are nonicteric. No conjunctiv al injection. Nares patent without rhinorrhea or discharge. Throat clear. Tongue midline. Mucous membranes are moist. NECK: Supple without JVD or thyromegaly. HEART: Regular rate and rhythm. No clicks, rubs, murmurs or gallops. LUNGS: Clear to auscultation bilaterally. ABDOMEN: Soft, nontender, nondistended, without palpable hepatosplenomegaly. EXTREMITIES: No calf tenderness or swelling. No clubbing, cyanosis or edema. NEUROLOGIC: He is awake, alert, oriented, minimally conversant. No focality noted. LABORATORY DATA: WBC count 13,590, hemoglobin 10.5, platelet count 339,000. Sodium 137, potassium 3 .6, chloride 102, carbon dioxide 28, creatinine 0.41, BUN 17, alkaline phosphatase elevated to 221, a lbumin decreased to 2.6. CEA pending. IMPRESSION: 1. Radiographically evident metastatic colorectal cancer (hepatic metastasis). 2. Anorexia/cachexia. 3. Hypoalbuminemia. 4. Hyponatremia, hypokalemia. 5. Anxiety. PLAN: It was my pleasure to visit with Michael at bedside this morning. Unfortunately, we do not have a confirmatory biopsy at this time, but certainly from a radiographic perspective, very suspicious a nd concerning for metastatic colorectal cancer. I advised Mr. Mcguire of these findings and inquire d whether he would be willing to pursue treatment upon confirmation. He did not express much enthusi asm at bedside, but certainly I would be happy to reconvene with him when he is feeling a little bit better perhaps as an outpatient. Agree with medical management otherwise. Obviously, his nutritiona l status needs to be put on the forefront and aggressively managed moving forward. Certainly obstruc tion is concerned should Michael decide not to pursue a formal salvage chemotherapy, perhaps palliative radiation therapy could be considered. I really have nothing further to add at this point and again would be happy to reconvene with Mr. Mcguire to further discuss therapeutic options should he aleisha e. Thank you very much for allowing me to participate in his care. Job ID: [id number]
[2021-04-25] MEDS: oxyCODONE HCL IR 5 MG TAB (IMMEDIATE RELEASE) PO PRN (14:25)
--- NOTE | 2021-04-25 17:47 | Hospitalist Progress Note ---
Date of Service April 25, 2021 Assessment & Plan (1) Rectal mass: Plan: This is a 75-year-old male with PMH of history of remote alcohol use with history of esophageal varices, presence of IVC filter, hypertension, hyperlipidemia, anxiety, history of celiac disease, chronic lower back pain and other medical problems listed below who presents with worsening nausea, vomiting and diarrhea over the past few days. CT abd/pelvis showed rectal mass measuring over 5 cm in length concerning for colorectal carcinoma. 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 with trace perihepatic ascites Gastro on board Plan to proceed with colonoscopy Continue clear liquid diet Bowel prep as per GI (2) Nausea vomiting and diarrhea: Plan: Continue IV fluids, Continue clear liquid diet Clinically improved (3) Acute hyponatremia: Plan: Na on admission 129 Received IVF Na 137 today Continue monitor BMP (4) Hypokalemia: Plan: Potassium 3.4 on admission K 3.0 today, K replaced Continue monitor BMP (5) HTN (hypertension): Plan: Normotensive Continue lisinopril (6) Anxiety: Plan: On Ativan (7) Chronic back pain: Plan: Continue home oxycodone PRN DVT Ppx: SQ Lovenox Code status: FULL Admission and Anticipated Discharge Date Admission Date: April 23, 2021 Subjective Patient was seen and examined for follow-up of nausea and vomiting Lying in bed with no distress resting comfortable Pt continue to have dark stool He feels a little better today He agreed to proceed with the scope Denies any chest pain, palpitation, dizziness and SOB Physical Exam Physical Exam: General- No acute distress, cachetic Head- atraumatic Eyes- PERRL, EOMI, ENT- oropharynx clear Neck- supple, no JVD Lungs- clear to auscultation Heart- regular rhythm; no murmur Abdomen- normal bowel sounds, soft, +palpable mass R side of the abdomen Extremities- no calf tenderness Neuro- alert, oriented x 3; PERRL, EOMI; no facial palsy; no dysarthria Skin- warm & dry Results & Data Results & Data ([facility]) Vital Signs (Past 12 Hours) Vital Signs Temp Pulse Pulse Resp BP Pulse Ox 04/25/21 15:52 36.5 C 78 16 105/65 96 04/25/21 11:51 36.6 C 88 16 114/77 98 04/25/21 09:00 73 04/25/21 07:41 36.9 C 62 16 116/74 96
[2021-04-25] MEDS: ENOXAPARIN INJ 40 MG/0.4 ML SYR SQ SCH (21:56)
[2021-04-25] MEDS: ACETAMINOPHEN 325 MG TAB PO PRN (21:58)
--- NOTE | 2021-04-25 23:38 | Communication Note ---
Date of Service: April 25, 2021 Patient agreeable to colonoscopy procedure tomorrow as per RN. N.p.o. after midnight as per GI specialist zoning engineer instructions as per RN.
[2021-04-26] MEDS: POTASSIUM CHLORIDE 40 MEQ in SODIUM CHLORIDE 0.9% 1000ML 1,000 ML IV SCH ×2 (01:16→23:03)
[2021-04-26] MEDS: lisinopril 5 MG TAB PO SCH (08:44)
[2021-04-26] MEDS: PANTOprazole 40 MG TAB PO SCH (08:44)
[2021-04-26] MEDS: THIAMINE HCL 100 MG TAB PO SCH (08:44)
[2021-04-26] MEDS: FERROUS SULFATE 325 MG TAB PO SCH (08:45)
[2021-04-26] MEDS: LORazepam 1 MG TAB PO SCH ×2 (08:45→22:04)
[2021-04-26] MEDS: MAGNESIUM OXIDE 400 MG TAB PO SCH (08:45)
--- NOTE | 2021-04-26 08:50 | Communication Note ---
Date of Service: April 26, 2021 Pt now agreeable to endoscopic evaluation, wants examination today. Discussed with attending. Given location of mass will plan for unprepped flex sig. All questions answered. Please keep NPO.
[2021-04-26 09:59] LABS: Eosinophils # (auto) 0.07 K/uL (0-0.5); Eosinophils % (auto) 0.8 %; Hematocrit (blood only) 32.1 % (42-52); Hemoglobin 10.7 g/dL (14.0-18.0); Immature Granulocytes # (auto) 0.04 K/uL (0.00-0.02); Immature Granulocytes % (auto) 0.4 %; Lymphocytes # (auto) 0.42 K/uL (1.2-3.4); Lymphocytes % (auto) 4.7 %; Mean Corpuscular Hemoglobin 31.2 pg (25-34); Mean Corpuscular Hgb Conc 33.3 g/dL (32-36); Mean Corpuscular Volume 93.6 fL (80-100); Mean Platelet Volume 8.3 fL (7.4-10.4); Monocytes # (auto) 0.86 K/uL (0.11-0.59); Monocytes % (auto) 9.6 %; Neutrophils # (auto) 7.58 K/uL (1.4-6.5); Neutrophils % (auto) 84.5 %; Platelet Count 277 K/uL (130-400); RDW Coefficient of Variation 14.7 % (11.5-14.5); RDW Standard Deviation 49.9 fL (36.4-46.3); Red Blood Count 3.43 M/uL (4.7-6.1); White Blood Count 8.97 K/uL (4.8-10.8)
[2021-04-26] MEDS ORDERED: LIDOCAINE 2% 2 ML VIAL/AMP(20MG/ML) INFIL ONE (10:10)
[2021-04-26] MEDS ORDERED: PROPOFOL IV EMULSION 10 MG/ML 20 ML VIAL IV ONE (10:10)
--- NOTE | 2021-04-26 10:22 | Anesthesiology Consultation ---
Date of Service April 26, 2021 Assessment & Plan (1) Encounter for pre-operative examination: Chart Review Chart Review: Acceptable Risk for Surgery, Patient NOT seen in Pre Admission Testing and carpentry supervisor initiated Consults Requested none History Surgery Operation Date: 04/26/21 16:45 Proposed Procedures p Flexible Sigmoidoscopy Dr Eid - Ewelina Eid, DO Height/Weight Height: 5 ft 7 in Weight: 65.1 kg Allergies Allergy/AdvReac Type Severity Reaction Status Date / Time gluten Allergy Intermediate Hx of Unverified 04/23/21 16:09 Celiac Disease Medications Home Medications Medication Instructions Recorded Confirmed Last Taken albuterol sulfate 90 mcg/actuation 2 puff INHALATION Q4H PRN 04/23/21 04/23/21 Unknown aerosol inhaler ferrous sulfate 325 mg (65 mg 325 mg PO DAILY 04/23/21 04/23/21 04/18/21 iron) tablet lisinopril 5 mg tablet 5 mg PO DAILY 04/23/21 04/23/21 04/18/21 lorazepam 1 mg tablet 1 mg PO BID 04/23/21 04/23/21 04/18/21 magnesium oxide 400 mg PO DAILY 04/23/21 04/23/21 04/18/21 omeprazole 40 mg capsule,delayed 40 mg PO DAILY 04/23/21 04/23/21 04/18/21 release oxycodone 5 mg tablet 5 mg PO Q6H PRN 04/23/21 04/23/21 04/18/21 thiamine HCl (vitamin B1) 100 mg 100 mg PO DAILY 04/23/21 04/23/21 04/18/21 tablet (Vitamin B-1) Active Medications Generic Name Dose Route Start Last Admin Trade Name Freq PRN Reason Stop Dose Admin Acetaminophen 650 mg 04/23/21 20:26 04/25/21 21:58 Acetaminophen 325 Mg Tab PO 05/23/21 20:25 650 mg Q4H PRN Administration Pain or Fever Enoxaparin Sodium 40 mg 04/23/21 20:26 04/25/21 21:56 Enoxaparin Inj 40 Mg/0.4 Ml Syr SQ 05/23/21 20:25 40 mg Q24H BILLIE Administration Ferrous Sulfate 325 mg 04/24/21 09:00 04/26/21 08:45 Ferrous Sulfate 325 Mg Tab PO 05/24/21 08:59 325 mg DAILY BILLIE Administration Potassium Chloride 40 meq/ 1,020 mls @ 50 mls/hr 04/26/21 00:00 04/26/21 01:16 Sodium Chloride IV 05/26/21 00:00 50 mls/hr .[id number] BILLIE Administration Lisinopril 5 mg 04/24/21 09:00 04/26/21 08:44 Lisinopril 5 Mg Tab PO 05/24/21 08:59 5 mg DAILY BILLIE Administration Lorazepam 1 mg 04/23/21 21:00 04/26/21 08:45 Lorazepam 1 Mg Tab PO 05/23/21 20:59 1 mg BID BILLIE Administration Magnesium Oxide 400 mg 04/24/21 09:00 04/26/21 08:45 Magnesium Oxide 400 Mg Tab PO 05/24/21 08:59 400 mg DAILY BILLIE Administration Oxycodone HCl 5 mg 04/23/21 20:26 04/25/21 14:25 Oxycodone Hcl Ir 5 Mg Tab (Immediate Release) PO 05/07/21 20:25 5 mg Q6H PRN Administration Pain (severe) Pantoprazole Sodium 40 mg 04/24/21 09:00 04/26/21 08:44 Pantoprazole 40 Mg Tab PO 05/24/21 08:59 40 mg DAILY BILLIE Administration Phenol 1 sprays 04/24/21 21:21 04/25/21 08:56 Chloraseptic 1.4% Soln 180 Ml Btl MT 05/24/21 21:20 1 sprays Q6H PRN Administration Sore Throat Thiamine HCl 100 mg 04/24/21 09:00 04/26/21 08:44 Thiamine Hcl 100 Mg Tab PO 05/24/21 08:59 100 mg DAILY BILLIE Administration Past Medical History Medical History (Updated 04/26/21 @ 10:23 by Wood Song MD) Acute dehydration Acute hyponatremia Anxiety Celiac disease Chronic back pain Dyslipidemia HTN (hypertension) Metastasis to liver Pulmonary embolus Rectal mass Past Family History Family History Other Cancer Hypertension Past Surgical History Surgical History History of inferior vena caval filter placement Hx of tonsillectomy Social History Smoking Status: Former smoker Do You Dip or Chew Tobacco: No Hx Alcohol Use: No (Quit 2015) Hx Substance Use: No substance use type: does not use Physical Exam Vital Signs Last Vital Signs Temp 36.6 C 04/26/21 08:17 Pulse 75 04/26/21 08:17 Resp 19 04/26/21 08:17 BP 122/82 04/26/21 08:17 Pulse Ox 96 04/26/21 08:17 Testing Laboratory Results 04/26/21 09:44 PT 14.2 Seconds (9.0-12.0) H 04/23/21 14:11 INR 1.4 (0.9-1.1) H 04/23/21 14:11
[2021-04-26 10:29] LABS: BUN Creatinine Ratio 25.7 (10-20); Calcium 8.3 mg/dl (8.5-10.1); Creatinine Clr Calc Pharmacy 178.2 ml/min; Potassium 3.3 mmol/L (3.5-5.1)
--- NOTE | 2021-04-26 10:35 | History & Physical Report ---
Date of Service April 26, 2021 Assessment & Plan (1) Rectal mass: Plan: flex sig today (2) Metastasis to liver: Admission and Anticipated Discharge Date Admission Date: April 23, 2021 History of Present Illness Chief Complaint: rectal mass Primary Care Provider: Bakari Cosby MD rectal mass Allergies Allergy/AdvReac Type Severity Reaction Status Date / Time gluten Allergy Intermediate Hx of Unverified 04/23/21 16:09 Celiac Disease Home Medications Medication Instructions Recorded Confirmed Type albuterol sulfate 90 mcg/actuation 2 puff INHALATION Q4H PRN 04/23/21 04/23/21 History aerosol inhaler ferrous sulfate 325 mg (65 mg 325 mg PO DAILY 04/23/21 04/23/21 History iron) tablet lisinopril 5 mg tablet 5 mg PO DAILY 04/23/21 04/23/21 History lorazepam 1 mg tablet 1 mg PO BID 04/23/21 04/23/21 History magnesium oxide 400 mg PO DAILY 04/23/21 04/23/21 History omeprazole 40 mg capsule,delayed 40 mg PO DAILY 04/23/21 04/23/21 History release oxycodone 5 mg tablet 5 mg PO Q6H PRN 04/23/21 04/23/21 History thiamine HCl (vitamin B1) 100 mg 100 mg PO DAILY 04/23/21 04/23/21 History tablet (Vitamin B-1) Past Med/Surg History Medical History (Updated 04/26/21 @ 10:23 by Wood Song MD) Acute dehydration Acute hyponatremia Anxiety Celiac disease Chronic back pain Dyslipidemia HTN (hypertension) Metastasis to liver Pulmonary embolus Rectal mass Surgical History History of inferior vena caval filter placement Hx of tonsillectomy Family History Other Cancer Hypertension Social History (Updated 04/23/21 @ 19:07 by Melia Campbell PA-C) Smoking Status: Former smoker Tobacco Type: Cigarettes Second Hand Exposure: No; Do You Dip or Chew Tobacco: No; Tobacco Cessation Education Requested by Patient: No Hx Alcohol Use: No (Quit 2015) Hx Substance Use: No Preferred Language: Uzbek Communication Ability: Effective Cna Required: No Beliefs That Will Affect Care: None marital status: Current Living Situation: Spouse Other Information That Helps Us Care for You: No Feels Safe at Home: Yes Safety Concerns: Feels Safe At This Time Assistive Devices: Glasses Review of Systems All systems reviewed & are unremarkable except as noted in HPI & below Physical Exam Constitutional: WD/WN, vitals as above Respiratory: normal respiratory effort, lungs clear to auscultation Cardiovascular: RRR, no murmur, no edema Gastrointestinal (Abdomen): normal bowel sounds, soft, nontender, no hepatosplenomegaly Results & Data ([facility]) Vital Signs (Past 12 Hours) Vital Signs Temp Pulse Pulse Resp BP Pulse Ox 04/26/21 10:25 36.7 C 75 18 114/75 99 04/26/21 08:17 36.6 C 75 19 122/82 96 04/26/21 02:42 36.6 C 70 16 112/71 96 04/26/21 02:27 72 04/25/21 22:38 36.6 C 71 17 109/73 98 Code Status & VTE Plan VTE Prophylaxis Plan VTE Prophylaxis will be ordered: Yes
--- NOTE | 2021-04-26 11:01 | GI REPORT ---
Patient Name: Michael Mcguire Procedure Date: 04/26/2021 10:25 AM Date of : 1945 Admit Type: Inpatient Age: 75 Gender: Male Attending MD: Ewelina Eid DO Procedure: Flexible Sigmoidoscopy Providers: Ewelina Eid DO Referring MD: Referred Self Indications: Abnormal CT of the GI tract, Suspected rectal cancer Medicines: Propofol per Anesthesia Complications: No immediate complications. Estimated blood loss: Minimal. Estimated Blood Loss: Estimated blood loss was minimal. Procedure: Pre-Anesthesia Assessment: - Prior to the procedure, a History and Physical was performed, and patient medications, allergies and sensitivities were reviewed. The patient's tolerance of previous anesthesia was reviewed. - The risks and benefits of the procedure and the sedation options and risks were discussed with the patient. All questions were answered and informed consent was obtained. - Patient identification and proposed procedure were verified prior to the procedure by the physician and the nurse. The procedure was verified in the pre-procedure area in the procedure room. - Mental Status Examination: alert and oriented. Airway Examination: normal oropharyngeal airway and neck mobility. Respiratory Examination: clear to auscultation. CV Examination: normal. Abdominal Examination: bowel sounds present, abdomen soft and non-tender, no masses or organomegaly noted. - ASA Grade Assessment: IV - A patient with severe systemic disease that is a constant threat to life. After obtaining informed consent, the endoscope was passed under direct vision. Throughout the procedure, the patient's blood pressure, pulse, and oxygen saturations were monitored continuously. The Endoscope was introduced through the anus and advanced to the rectosigmoid junction. The flexible sigmoidoscopy was accomplished without difficulty. The patient tolerated the procedure well. The quality of the bowel preparation was good. Findings: The perianal and digital rectal examinations were normal. Pertinent negatives include normal sphincter tone and no palpable rectal lesions. A frond-like/villous partially obstructing large mass was found at 10 cm proximal to the anus. The mass was circumferential. Oozing was present. Biopsies were taken with a cold forceps for histology. Verification of patient identification for the specimen was done by the physician and nurse using the patient's name and date. Estimated blood loss was minimal. Impression: - Malignant partially obstructing tumor at 10 cm proximal to the anus. Biopsied. Recommendation: - Await pathology results. - Follow up with oncology - Palliative medicine consult - If patient develops obstructive symptoms, may consider stent placement though mass is quite low. - Return patient to [facility] for ongoing care. Ewelina Eid D.O. Ewelina Eid, 04/26/2021 11:00:54 AM This report has been signed electronically. Note Initiated On: 04/26/2021 10:25 AM Number of Addenda: 0 I attest to the content of the Intraoperative Record and orders documented therein, exceptions below {[id number]}
--- NOTE | 2021-04-26 11:35 | Anesthesiology Progress Note ---
Date of Service April 26, 2021 Anesthesia Post Procedure Vital Signs Vital Signs: Temp Pulse Pulse Resp BP Pulse Ox 04/26/21 11:29 72 18 117/70 98 04/26/21 11:14 60 18 131/97 97 04/26/21 11:04 80 18 96/78 L 94 04/26/21 10:25 36.7 C 75 18 114/75 99 04/26/21 08:17 36.6 C 75 19 122/82 96 04/26/21 02:42 36.6 C 70 16 112/71 96 04/26/21 02:27 72 04/25/21 22:38 36.6 C 71 17 109/73 98 04/25/21 19:39 36.6 C 98 H 18 111/73 93 04/25/21 16:00 87 04/25/21 15:52 36.5 C 78 16 105/65 96 04/25/21 11:51 36.6 C 88 16 114/77 98 Pain Intensity Generalized: Pain Intensity: 6 Transfer of Care Handoff Completed per policy Notes Mental Status: alert / awake / arousable and participated in evaluation Patient Amnestic to Procedure: Yes Nausea / Vomiting: adequately controlled Pain: adequately controlled Airway Patency, RR, SpO2: stable & adequate BP & HR: stable & adequate Hydration State: stable & adequate Anesthetic Complications: no major complications apparent and Pt Satisfied with anesthetic care
[2021-04-26] MEDS: ENOXAPARIN INJ 40 MG/0.4 ML SYR SQ SCH (19:24)
[2021-04-26] MEDS: oxyCODONE HCL IR 5 MG TAB (IMMEDIATE RELEASE) PO PRN (20:16)
[2021-04-26] MEDS ORDERED: POTASSIUM CHLORIDE CRTAB 20 MEQ TABCR PO STA (20:51)
--- NOTE | 2021-04-26 20:52 | Hospitalist Progress Note ---
Date of Service April 26, 2021 Late entry, date of service as noted above Assessment & Plan (1) Rectal mass: Plan: This is a 75-year-old male with PMH of history of remote alcohol use with history of esophageal varices, presence of IVC filter, hypertension, hyperlipid emia, anxiety, history of celiac disease, chronic lower back pain and other medical problems listed below who presents with worsening nausea, vomiting and diarrhea over the past few days. CT abd/pelvis showed rectal mass measuring over 5 cm in length concerning for colorectal carcinoma. 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 with trace perihepatic ascites Status post flex sigmoidoscopy: Positive friable villous rectal mass Highly suspicious for malignancy CEA elevated Recommend oncology and palliative care consultation Awaiting recommendations (2) Nausea vomiting and diarrhea: Plan: Resolved Continue IV fluids Continue clear liquid diet (3) Acute hyponatremia: Plan: Na on admission 129 Received IVF Na 136 Continue monitor BMP (4) Hypokalemia: Plan: Potassium 3.4 on admission K 3.3, replaced Continue monitor BMP (5) HTN (hypertension): Plan: Normotensive Continue lisinopril (6) Anxiety: Plan: On Ativan (7) Chronic back pain: Plan: Continue home oxycodone PRN DVT Ppx: SQ Lovenox Code status: FULL Position pending Admission and Anticipated Discharge Date Admission Date: April 23, 2021 Subjective Follow-up for rectal mass Status post flex sigmoidoscopy Patient seen resting in bed, comfortable appears tired but not in distress States he feels very hungry Has some sore throat But no abdominal pain, nausea No chest pain, shortness of breath, palpitations, dizziness No other symptoms Review of Systems Review of Systems: All reviewed and negative except for above Physical Exam Physical Exam: General- oriented x 3, not in distress, speaks in sentences with no effort or accessory muscle use Eyes- anicteric Neck- no JVD Lungs- clear breath sounds bilaterally, no rales/wheezes Heart- normal rate, regular rhythm; no murmurs Abdomen- normal bowel sounds, nondistended, soft, nontender Extremities- no pretibial edema, no calf tenderness Neuro- alert, oriented x 3; no gross focal neurologic deficits Skin- warm & dry Results & Data Results & Data ([facility]) Vital Signs (Past 12 Hours) Vital Signs Temp Pulse Resp BP Pulse Ox 04/26/21 19:38 36.5 C 84 17 102/68 97 04/26/21 15:55 36.8 C 71 19 118/79 98 04/26/21 11:29 72 18 117/70 98 04/26/21 11:14 60 18 131/97 97 04/26/21 11:04 80 18 96/78 L 94 04/26/21 10:25 36.7 C 75 18 114/75 99 all noted including below
[2021-04-27] MEDS: oxyCODONE HCL IR 5 MG TAB (IMMEDIATE RELEASE) PO PRN ×2 (07:53→17:37)
[2021-04-27] MEDS: PANTOprazole 40 MG TAB PO SCH (07:54)
[2021-04-27] MEDS: FERROUS SULFATE 325 MG TAB PO SCH (07:54)
[2021-04-27] MEDS: MAGNESIUM OXIDE 400 MG TAB PO SCH (07:54)
[2021-04-27] MEDS: lisinopril 5 MG TAB PO SCH (07:54)
[2021-04-27] MEDS: THIAMINE HCL 100 MG TAB PO SCH (07:54)
[2021-04-27] MEDS: LORazepam 1 MG TAB PO SCH ×2 (09:15→20:36)
[2021-04-27 10:32] LABS: BUN Creatinine Ratio 17.9 (10-20); Calcium 8.4 mg/dl (8.5-10.1); Creatinine Clr Calc Pharmacy 139.2 ml/min; Est GFR (African American) 131.3 ml/min; Est GFR (Non-African American) 113.3 ml/min; Magnesium 2.1 mg/dl (1.8-2.4)
--- NOTE | 2021-04-27 12:11 | Palliative Care Consultation ---
Date of Consultation April 27, 2021 Assessment & Plan (1) Chronic back pain: He takes oxycodone at home which is effective for him. (2) Palliative care encounter: I talked with Mr. Mcguire about his illness. He understands that this appears to be cancer which is quite advanced. He tells me that his original thought was not to pursue treatment for this, but as he considers it more, he is uncertain about what he would want to do. He does feel that speaking with oncology would be beneficial for him to understand the options. We discussed that treatment would likely be palliative rather than curative. We also discussed risk of obstruction with his rectal mass and possible options for that. He feels that he hasn't really had time to process this information and needs time to consider his options. He feels that he has good spiritual support and uses meditation and randall chi to cope with stress. He tells me that his biggest concern is his family. His is [place] and he is concerned that she does not entirely understand what is happening. I offered to talk with her with the assistance of an senior hris analyst. He declined at this time and would prefer to talk with her himself. He has a former student of his who he has a very close relationship with and feels that he would be an important source of support. He is agreeable to meet further with palliative care to discuss goals and concerns further. (3) Rectal mass: (4) Metastasis to liver: History of Present Illness Reason for Consultation: goals of care Requesting Physician: Dr. Miranda Attending Physician: Jack Miranda MD History of Present Illness 75 yo gentleman who presented with two week history of nausea, vomiting and diarrhea. He also has had a 40lb weight loss over the last 18 months. He was found on CT to have a 5cm partially obstructing rectal mass. He had endoscopy yesterday with biopsy which is pending. However, this is strongly suspicious for malignancy with numerous hepatic lesions and CEA elevated at 563. His hemoglobin is stable. He does have elevated AST and alkaline phosphatase with a history of alcohol use and esophageal varices. Allergies Allergy/AdvReac Type Severity Reaction Status Date / Time gluten Allergy Intermediate Hx of Unverified 04/23/21 16:09 Celiac Disease Home Medications Medication Instructions Recorded Confirmed Type albuterol sulfate 90 mcg/actuation 2 puff INHALATION Q4H PRN 04/23/21 04/23/21 History aerosol inhaler ferrous sulfate 325 mg (65 mg 325 mg PO DAILY 04/23/21 04/23/21 History iron) tablet lisinopril 5 mg tablet 5 mg PO DAILY 04/23/21 04/23/21 History lorazepam 1 mg tablet 1 mg PO BID 04/23/21 04/23/21 History magnesium oxide 400 mg PO DAILY 04/23/21 04/23/21 History omeprazole 40 mg capsule,delayed 40 mg PO DAILY 04/23/21 04/23/21 History release oxycodone 5 mg tablet 5 mg PO Q6H PRN 04/23/21 04/23/21 History thiamine HCl (vitamin B1) 100 mg 100 mg PO DAILY 04/23/21 04/23/21 History tablet (Vitamin B-1) Patient History Medical History Acute dehydration Acute hyponatremia Anxiety Celiac disease Chronic back pain Dyslipidemia HTN (hypertension) Metastasis to liver Pulmonary embolus Rectal mass Surgical History History of inferior vena caval filter placement Hx of tonsillectomy Family History Other Cancer Hypertension Social History Smoking Status: Former smoker Tobacco Type: Cigarettes Second Hand Exposure: No; Do You Dip or Chew Tobacco: No; Tobacco Cessation Education Requested by Patient: No Hx Alcohol Use: No (Quit 2015) Hx Substance Use: No Preferred Language: Sinhala Communication Ability: Effective 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 Beliefs That Will Affect Care: None marital status: Current Living Situation: Spouse Other Information That Helps Us Care for You: No Feels Safe at Home: Yes Safety Concerns: Feels Safe At This Time Assistive Devices: Glasses Review of Systems Review of Systems: [place] Symptom Assessment Scale Pain 2/3 Dyspnea 0/3 Anxiety 0/3 Fatigue 2/3 Nausea 0/3 Anorexia 1/3 Palliative Performance Score 40% Physical Exam Constitutional: + ill appearing and + thin Respiratory: normal respiratory effort; no labored breathing Cardiovascular: Rate/Rhythm: regular rate and regular rhythm Gastrointestinal (Abdomen): not distended Musculoskeletal: Extremities: + muscle atrophy Neurologic: awake; no focal motor deficits and not confused Results & Data ([facility]) Vital Signs (Past 12 Hours) Vital Signs Temp Pulse Pulse Pulse Resp BP BP 04/27/21 11:20 97.5 F L 78 16 99/65 L 04/27/21 07:17 98.2 F 72 20 117/75 04/27/21 07:00 71 04/27/21 03:24 98.4 F 81 17 106/70 Pulse Ox 04/27/21 11:20 98 04/27/21 07:17 97 04/27/21 07:00 04/27/21 03:24 96 PG Care Time/CCT Total # of Minutes Spent Total Time Spent: 60 Total Time Spent with Patient: Total time spent is greater than 50% in coordination of care (as documented) at patient's floor/unit and/or counseling patient: symptom management, goals of care Coding Level of Care Code 06452 Initial Inpt Care Lvl 2 Diagnoses Chronic back pain M54.9; G89.29 Palliative care encounter Z51.5 Rectal mass K62.89 Metastasis to liver C78.7
--- NOTE | 2021-04-27 20:00 | Hospitalist Progress Note ---
Date of Service April 27, 2021 Assessment & Plan (1) Rectal mass: Plan: This is a 75-year-old male with PMH of history of remote alcohol use with history of esophageal varices, presence of IVC filter, hypertension, hyperlipidemia, anxiety, history of celiac disease, chronic lower back pain and other medical problems listed below who presents with worsening nausea, vomiting and diarrhea over the past few days. CT abd/pelvis showed rectal mass measuring over 5 cm in length concerning for colorectal carcinoma. 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 with trace perihepatic ascites Status post flex sigmoidoscopy: Positive friable villous rectal mass Highly suspicious for malignancy CEA elevated Recommend oncology and palliative care consultation Patient interested to know his options for treatment even palliative at this point Awaiting pathology report Awaiting recommendation from oncologist (2) Nausea vomiting and diarrhea: Plan: Resolved Continue IV fluids Continue clear liquid diet (3) Acute hyponatremia: Plan: Na on admission 129 Received IVF Na 13 7 Continue monitor BMP (4) Hypokalemia: Plan: Potassium 3.4 on admission K 3.3, replaced Continue monitor BMP (5) HTN (hypertension): Plan: Normotensive Continue lisinopril (6) Anxiety: Plan: On Ativan (7) Chronic back pain: Plan: Continue home oxycodone PRN DVT Ppx: SQ Lovenox Code status: FULL Disposition: Pending PT OT evaluation in progress plan of care discussed with patient and his daughter Mihaela over the phone, in detail and at length all questions answered They are understanding, agreeable, comfortable with the plan of care Admission and Anticipated Discharge Date Admission Date: April 23, 2021 Subjective Follow-up for rectal mass, etc. Seen resting in bed, sleeping but easily awakened States he feels okay overall Would like diet to be advanced to soft No abdominal pain or nausea No chest pain, shortness of breath or headache or dizziness No other symptoms Review of Systems Review of Systems: All reviewed and negative except for above Physical Exam Physical Exam: General- oriented x 3, not in distress, speaks in sentences with no effort or accessory muscle use Somewhat weak Eyes- anicteric Neck- no JVD Lungs- clear BS bilaterally, no wheezing Heart- normal rate, regular rhythm; no murmurs Abdomen- normal bowel sounds, nondistended, soft, nontender Extremities- no pretibial edema, no calf tenderness Neuro- alert, oriented x 3; no new gross focal neurologic deficits Skin- warm & dry Results & Data Results & Data ([facility]) Vital Signs (Past 12 Hours) Vital Signs Temp Pulse Pulse Resp BP Pulse Ox 04/27/21 19:17 36.6 C 96 H 20 97/67 L 97 04/27/21 15:36 36.6 C 84 20 97/64 L 98 04/27/21 14:57 87 04/27/21 11:20 36.4 C L 78 16 99/65 L 98 All noted including below
[2021-04-27] MEDS: ENOXAPARIN INJ 40 MG/0.4 ML SYR SQ SCH (20:37)
[2021-04-28] MEDS: oxyCODONE HCL IR 5 MG TAB (IMMEDIATE RELEASE) PO PRN ×4 (02:12→20:07)
[2021-04-28] MEDS: MAGNESIUM OXIDE 400 MG TAB PO SCH (08:16)
[2021-04-28] MEDS: PANTOprazole 40 MG TAB PO SCH (08:16)
[2021-04-28] MEDS: THIAMINE HCL 100 MG TAB PO SCH (08:16)
[2021-04-28] MEDS: FERROUS SULFATE 325 MG TAB PO SCH (08:16)
[2021-04-28] MEDS: LORazepam 1 MG TAB PO SCH ×2 (08:16→20:07)
--- NOTE | 2021-04-28 13:01 | Palliative Care Progress Note ---
Date of Service April 28, 2021 Assessment & Plan (1) RUQ abdominal pain: Plan: Likely related to liver metastases. Will increase frequency of oxycodone dosing to every four hours prn. (2) Palliative care encounter: Plan: We discussed goals of care further today. He is concerned about how his will manage after he dies and wants to make sure that she is financially secure. Pathology results are still pending and he is uncertain about how he would want to proceed with his care. We discussed option of comfort care with hospice if he decided that he did not want to pursue treatment. He does understand that his prognosis is poor but asked me if he would be here for the 2023 election. I explained to him that it is likely that he would not survive until the election and he expresses relief. I also asked him if his current illness affects his thoughts on full code. 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 He would prefer not to have that but feels that his would want him to be full code so he would like to remain so for now. (3) Rectal mass: (4) Metastasis to liver: (5) Chronic back pain: Admission and Anticipated Discharge Date Admission Date: April 23, 2021 Subjective Continues to have thoracic back pain which is chronic for him and now has RUQ pain. He is unsure of last BM. Per nursing notes, he had a BM this morning. Review of Systems Review of Systems: [place] Symptom Assessment Scale Pain 2/3 Dyspnea 0/3 Anxiety 0/3 Fatigue 2/3 Drowsiness 0/3 Palliative Performance Score 30% Physical Exam Constitutional: + thin and + frail appearing ENMT: Mouth: + dry oral mucous membranes Respiratory: normal respiratory effort; no labored breathing Gastrointestinal (Abdomen): soft, RUQ tenderness Musculoskeletal: Extremities: + muscle atrophy Neurologic: awake; not confused Results & Data ([facility] [place]) Vital Signs (Past 12 Hours) Vital Signs Temp Pulse Pulse Resp BP Pulse Ox 04/28/21 11:02 97.7 F 90 20 106/74 96 04/28/21 07:46 78 04/28/21 07:19 97.9 F 83 16 110/71 97 04/28/21 03:30 98.4 F 84 16 106/70 96 04/28/21 01:19 80 PG Care Time/CCT Total # of Minutes Spent Total Time Spent: 40 Total Time Spent with Patient: Total time spent is greater than 50% in coordination of care (as documented) at patient's floor/unit and/or counseling patient: symptom management, prognosis, goals of care, code status Coding Level of Care Code 38190 Subseq Hosp Care Lvl 3 Diagnoses Palliative care encounter Z51.5 Rectal mass K62.89 Metastasis to liver C78.7 Chronic back pain M54.9; G89.29 RUQ abdominal pain R10.11
--- NOTE | 2021-04-28 18:55 | Hospitalist Progress Note ---
Date of Service April 28, 2021 Assessment & Plan (1) Rectal mass: Plan: This is a 75-year-old male with PMH of history of remote alcohol use with history of esophageal varices, presence of IVC filter, hypertension, hyperlipidemia, anxiety, history of celiac disease, chronic lower back pain and other medical problems listed below who presents with worsening nausea, vomiting and diarrhea over the past few days. CT abd/pelvis showed rectal mass measuring over 5 cm in length concerning for colorectal carcinoma. 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 with trace perihepatic ascites Status post flex sigmoidoscopy: Positive friable villous rectal mass CEA elevated Recommend oncology and palliative care consultation Patient interested to know his options for treatment even palliative at this point Rectal Tissue biopsy: No invasive adenocarcinoma is identified. The findings represent an adenoma with at least high-grade dysplasia. Awaiting recommendation from oncologist- discussed with Dr. Duarte who will see patient on ff up visit tomorrow (2) Nausea vomiting and diarrhea: Plan: Resolved on soft diet (3) Acute hyponatremia: Plan: Na on admission 129 Received IVF Na 13 7 Continue monitor BMP (4) Hypokalemia: Plan: Potassium 3.4 on admission K 3.3, replaced (5) HTN (hypertension): Plan: Normotensive Continue lisinopril (6) Anxiety: Plan: On Ativan (7) Chronic back pain: Plan: Continue home oxycodone PRN DVT Ppx: SQ Lovenox Code status: FULL Disposition: Pending PT OT evaluation in progress plan of care discussed with patient and his daughter Mihaela over the phone, in detail and at length all questions answered They are understanding, agreeable, comfortable with the plan of care Admission and Anticipated Discharge Date Admission Date: April 23, 2021 Subjective ff up for rectal mass, etc seen resting in chair, comfortable not in distress states he had a few bites per meal today no abdominal pain, nausea/vomiting, chest pain, dyspnea, feels somewhat weak no other symptoms Review of Systems Review of Systems: all noted and negative except for above Physical Exam Physical Exam: General- oriented x 3, not in distress, speaks in sentences with no effort or accessory muscle use Eyes- anicteric Neck- no JVD Lungs- clear BS BL Heart- normal rate, regular rhythm; no murmurs Abdomen- normal bowel sounds, nondistended, soft, nontender Extremities-no LE edema, no calf tenderness Neuro- alert, oriented x 3; no new gross focal neurologic deficits Skin- warm & dry Results & Data Results & Data ([facility]) Vital Signs (Past 12 Hours) Vital Signs Temp Pulse Pulse Resp BP Pulse Ox 04/28/21 15:36 36.3 C L 89 18 94/56 L 98 04/28/21 15:00 90 04/28/21 11:02 36.5 C 90 20 106/74 96 04/28/21 07:46 78 04/28/21 07:19 36.6 C 83 16 110/71 97 all noted and reviewed including below
[2021-04-28] MEDS: ENOXAPARIN INJ 40 MG/0.4 ML SYR SQ SCH (20:07)
[2021-04-29] MEDS: oxyCODONE HCL IR 5 MG TAB (IMMEDIATE RELEASE) PO PRN ×4 (05:34→18:00)
[2021-04-29] MEDS: FERROUS SULFATE 325 MG TAB PO SCH (09:11)
[2021-04-29] MEDS: MAGNESIUM OXIDE 400 MG TAB PO SCH (09:11)
[2021-04-29] MEDS: LORazepam 1 MG TAB PO SCH ×2 (09:11→20:43)
[2021-04-29] MEDS: THIAMINE HCL 100 MG TAB PO SCH (09:12)
[2021-04-29] MEDS: PANTOprazole 40 MG TAB PO SCH (09:12)
--- NOTE | 2021-04-29 12:29 | Progress Notes ---
MEDICAL ONCOLOGY PROGRESS NOTE DATE OF SERVICE: 04/29/2021 DIAGNOSES: 1. Metastatic colorectal cancer (hepatic metastasis). 2. Anorexia/cachexia. 3. Hypoalbuminemia. 4. Electrolyte dysfunction. 5. Declining performance status. SUBJECTIVE: I was contacted by the hospitalist yesterday regarding providing further input to Mr. Mcguire pertaining to his current clinical state. This gentleman from a radiographic standpoint clearly suffers from metastatic colorectal cancer involving his liver. CEA is in triple digits, which also supports metastatic disease. That said, the palliative team engaged in discussion with Mr. Mcguire regarding his care moving forward. Michael indicated he would like to discuss options with me, hence my visit with him at bedside this morning. His performance status remains suboptimal and Mr. Mcguire admits he has been out of bed very little. OBJECTIVE: GENERAL: A pleasant, cachectic-appearing 75-year-old man, appears older than his stated age, in no acute distress. VITAL SIGNS: Temperature 36.5, pulse 84, respiratory rate 16, blood pressure 110/77. SKIN: Turgor is poor. No rashes or lesions otherwise. HEENT: Oral mucosa is dry. Dentition is in poor repair. No buccal lesions or ulcerations. HEART: Regular rate and rhythm. LUNGS: Clear to auscultation. ABDOMEN: Somewhat tender on the right side in particular. Bowel sounds hypoactive. No rigidity or guarding. EXTREMITIES: Trace peripheral edema in bilateral lower extremities. NEUROLOGIC: He is grossly intact. LABORATORY DATA: CEA 563.9. IMPRESSION: 1. Metastatic colorectal cancer. 2. Electrolyte dysfunction. 3. Hypoalbuminemia. 4. Suboptimal performance status. PLAN: I engaged in discussion with Mr. Mcguire directly outlining his prognosis, which is very poor. This gentleman has difficulty getting out of bed, his nutritional status is lacking, and overall, hesitant to offer any form of salvage chemotherapy. If Mr. Mcguire were to decide to pursue treatment, significant modification to any regimen would be incorporated. I advised Michael multiple studies have demonstrated that patients with poor performance status do poorly and quite possibly chemotherapy in this circumstance may expedite his and not necessarily prolong his life. I engaged in discussion regarding hospice and the benefits thereof. Despite my hesitancy, I advised Michael to consider these options and would certainly do whatever he chooses to do understanding the risks versus benefits moving forward. I would be happy to reengage with any family members with questions. Equally, I would be happy to visit with Mr. Mcguire for outpatient followup should he decide to pursue treatment. He understands his disease is not curable and estimated his survival at this juncture to 1-2 months maximum without treatment. Mr. Mcguire verbalized understanding of the explanations provided today. If there are any further questions or concerns, I can be contacted by phone. Thank you very much for allowing me to participate in the care of this gentleman. Job ID: [id number] [facility]
--- NOTE | 2021-04-29 15:00 | Hospitalist Progress Note ---
Date of Service April 29, 2021 Assessment & Plan (1) Rectal mass: Plan: 75-year-old male with PMH of history of remote alcohol use with history of esophageal varices, presence of IVC filter, hypertension, hyperlipidemia, anxiety, history of celiac disease, chronic lower back pain and other medical problems listed below who presents with worsening nausea, vomiting and diarrhea over some days. CT abd/pelvis showed rectal mass measuring over 5 cm in length concerning for colorectal carcinoma. 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 with trace perihepatic ascites Status post flex sigmoidoscopy: Positive friable villous rectal mass CEA elevated Rectal Tissue biopsy: The findings represent an adenoma with at least high-grade dysplasia. Oncologist and palliative team on board. Oncologist Dr. Duarte's evaluation and discussion with patient today noted. I discussed Dr. Duarte's recommendation with daughter and patient as well. Daughter would like to discuss with the oncologist as well They will like sometime to discuss and decide the plan (2) Nausea vomiting and diarrhea: Plan: Resolved on soft diet (3) Acute hyponatremia: Plan: Na on admission 129 Received IVF Last Na 137 (4) Hypokalemia: Plan: Potassium 3.4 on admission Had been repleted Check BMP in AM (5) HTN (hypertension): Plan: Normotensive Continue lisinopril (6) Anxiety: Plan: On Ativan (7) Chronic back pain: Plan: Continue home oxycodone PRN DVT Ppx: SQ Lovenox Code status: FULL Disposition: Pending PT OT evaluation in progress Admission and Anticipated Discharge Date Admission Date: April 23, 2021 Subjective 75-year-old male with PMH of history of remote alcohol use with history of esophageal varices, presence of IVC filter, hypertension, hyperlipidemia, anxiety, history of celiac disease, chronic lower back pain and other medical problems listed below who presents with worsening nausea, vomiting and diarrhea for some days. Was evaluated and noted to have a rectal mass concerning for colorectal carcinoma hepatic metastasis. Status post flexible sigmoidoscopy which showed friable villous rectal mass. Pathology showing adenoma with high-grade dysplasia Patient seen and examined this morning with daughter present . Patient reports no new complaints. Still has poor appetite and weakness. Review of Systems Constitutional: + fatigue and + anorexia Eyes: no problem reported Ear, Nose, Mouth, Throat: no problem reported Respiratory: no cough and no dyspnea Cardiovascular: no chest pain, no dyspnea and no edema Gastrointestinal: no nausea and no vomiting Reports occasional abdominal discomfort Genitourinary: no dysuria or no urinary frequency Neurologic: no dizziness and no headache(s) Psychiatric: no depression and no anxiety Physical Exam Constitutional: + well hydrated; no acute distress Frail elderly man Eyes: PERRL, conjunctivae normal, anicteric sclerae ENMT: external ear and nose normal, oropharynx normal Respiratory: normal respiratory effort, lungs clear to auscultation Cardiovascular: Rate/Rhythm: regular rate and regular rhythm S1-S2 No pedal edema Gastrointestinal (Abdomen): normal bowel sounds, soft, nontender, no hepatosplenomegaly Musculoskeletal: No pedal edema Neurologic: PERRL, EOMI, accommodation nl, no face palsy, no dysarthria Psychiatric: A+Ox3, euthymic affect Results & Data Results & Data ([facility]) Vital Signs (Past 12 Hours) Vital Signs Temp Pulse Pulse Resp BP Pulse Ox 04/29/21 11:06 36.5 C 84 16 110/77 97 04/29/21 07:21 37.1 C 90 18 127/84 96
[2021-04-29] MEDS: ENOXAPARIN INJ 40 MG/0.4 ML SYR SQ SCH (20:43)
[2021-04-30] MEDS: oxyCODONE HCL IR 5 MG TAB (IMMEDIATE RELEASE) PO PRN ×5 (01:14→20:47)
[2021-04-30] MEDS: LORazepam 1 MG TAB PO SCH ×2 (07:53→20:47)
[2021-04-30] MEDS: MAGNESIUM OXIDE 400 MG TAB PO SCH (07:54)
[2021-04-30] MEDS: FERROUS SULFATE 325 MG TAB PO SCH (07:54)
[2021-04-30] MEDS: PANTOprazole 40 MG TAB PO SCH (07:54)
[2021-04-30] MEDS: THIAMINE HCL 100 MG TAB PO SCH (07:54)
--- NOTE | 2021-04-30 10:19 | Hospitalist Progress Note ---
Date of Service April 30, 2021 Assessment & Plan (1) Rectal mass: Plan: 75-year-old male with PMH of history of remote alcohol use with history of esophageal varices, presence of IVC filter, hypertension, hyperlipidemia, anxiety, history of celiac disease, chronic lower back pain and other medical problems listed below who presents with worsening nausea, vomiting and diarrhea over some days. CT abd/pelvis showed rectal mass measuring over 5 cm in length concerning for colorectal carcinoma. 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 with trace perihepatic ascites Status post flex sigmoidoscopy: Positive friable villous rectal mass CEA elevated Rectal Tissue biopsy: The findings represent an adenoma with at least high-grade dysplasia. Oncologist and palliative team on board. Discussed with Dr. Duarte this morning the daughter would like him to call her to discuss patient in more detail. (2) Nausea vomiting and diarrhea: Plan: Resolved on soft diet (3) Acute hyponatremia: Plan: Na on admission 129 Received IVF Last Na 137 (4) Hypokalemia: Plan: Potassium 3.4 on admission Had been repleted Check BMP in AM (5) HTN (hypertension): Plan: Normotensive Continue lisinopril (6) Anxiety: Plan: On Ativan (7) Chronic back pain: Plan: Continue home oxycodone PRN DVT Ppx: SQ Lovenox Code status: FULL Disposition: Pending PT OT evaluation in progress Plan: Discussed with daughter who has had further discussions with patient and family Patient will like to proceed with home hospice and change his code status to DNR CM aware and working on home hospice arrangement Admission and Anticipated Discharge Date Admission Date: April 23, 2021 Subjective 75-year-old male with PMH of history of remote alcohol use with history of esophageal varices, presence of IVC filter, hypertension, hyperlipidemia, anxiety, history of celiac disease, chronic lower back pain and other medical problems listed below who presents with worsening nausea, vomiting and diarrhea for some days. Was evaluated and noted to have a rectal mass concerning for colorectal carcinoma hepatic metastasis. Status post flexible sigmoidoscopy which showed friable villous rectal mass. Pathology showing adenoma with high-grade dysplasia Patient seen and examined this morning . Still has poor appetite and weakness. Reports occasional chronic low back pain which is controlled Review of Systems Constitutional: + fatigue and + anorexia Eyes: no problem reported Ear, Nose, Mouth, Throat: no problem reported Respiratory: no cough and no dyspnea Cardiovascular: no chest pain, no dyspnea and no edema Gastrointestinal: no abdominal pain, no nausea and no vomiting Genitourinary: no dysuria or no urinary frequency Musculoskeletal: Chronic low back pain Neurologic: no dizziness and no headache(s) Psychiatric: no depression and no anxiety Physical Exam Constitutional: + well hydrated; no acute distress Frail elderly man. Speaking in whispers Eyes: PERRL, conjunctivae normal, anicteric sclerae ENMT: external ear and nose normal, oropharynx normal Respiratory: normal respiratory effort, lungs clear to auscultation Cardiovascular: Rate/Rhythm: regular rate and regular rhythm Gastrointestinal (Abdomen): normal bowel sounds, soft, nontender, no hepatosplenomegaly Musculoskeletal: No pedal edema Neurologic: PERRL, EOMI, accommodation nl, no face palsy, no dysarthria Psychiatric: A+Ox3, euthymic affect Results & Data Results & Data ([facility]) Vital Signs (Past 12 Hours) Vital Signs Temp Pulse Pulse Resp BP Pulse Ox 04/30/21 08:00 36.7 C 89 20 119/77 97 04/30/21 07:32 70 04/30/21 03:52 65 04/30/21 03:29 36.6 C 18 107/74 97
[2021-04-30] MEDS: ENOXAPARIN INJ 40 MG/0.4 ML SYR SQ SCH (20:48)
[2021-05-01] MEDS: oxyCODONE HCL IR 5 MG TAB (IMMEDIATE RELEASE) PO PRN ×5 (04:37→20:28)
[2021-05-01] MEDS: MAGNESIUM OXIDE 400 MG TAB PO SCH ×2 (08:31→13:59)
[2021-05-01] MEDS: FERROUS SULFATE 325 MG TAB PO SCH (08:31)
[2021-05-01] MEDS: PANTOprazole 40 MG TAB PO SCH ×2 (08:31→14:00)
[2021-05-01] MEDS: LORazepam 1 MG TAB PO SCH ×2 (08:31→22:07)
[2021-05-01] MEDS: THIAMINE HCL 100 MG TAB PO SCH (08:31)
--- NOTE | 2021-05-01 10:08 | Hospitalist Progress Note ---
Date of Service May 01, 2021 Assessment & Plan (1) Rectal mass: Plan: 75-year-old male with PMH of history of remote alcohol use with history of esophageal varices, presence of IVC filter, hypertension, hyperlipidemia, anxiety, history of celiac disease, chronic lower back pain and other medical problems listed below who presents with worsening nausea, vomiting and diarrhea over some days. CT abd/pelvis showed rectal mass measuring over 5 cm in length concerning for colorectal carcinoma. 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 with trace perihepatic ascites Status post flex sigmoidoscopy: Positive friable villous rectal mass CEA elevated Rectal Tissue biopsy: The findings represent an adenoma with at least high-grade dysplasia. Oncologist and palliative team on board. CM working on hospice with patient and family (2) Nausea vomiting and diarrhea: Plan: Crush pills to minimize difficulty swallowing Antiemetics prn (3) Acute hyponatremia: Plan: Na on admission 129 Received IVF Last Na 137 (4) Hypokalemia: Plan: Potassium 3.4 on admission Had been repleted (5) HTN (hypertension): Plan: Normotensive Lisinopril held (6) Anxiety: Plan: On Ativan (7) Chronic back pain: Plan: Continue oxycodone PRN DVT Ppx: SQ Lovenox Code status: DNR Admission and Anticipated Discharge Date Admission Date: April 23, 2021 Subjective 75-year-old male with PMH of history of remote alcohol use with history of esophageal varices, presence of IVC filter, hypertension, hyperlipidemia, anxiety, history of celiac disease, chronic lower back pain and other medical problems listed below who presents with worsening nausea, vomiting and diarrhea for some days. Was evaluated and noted to have a rectal mass concerning for colorectal carcinoma hepatic metastasis. Status post flexible sigmoidoscopy which showed friable villous rectal mass. Pathology showing adenoma with high-grade dysplasia Patient seen and examined this morning . Reports problems swallowing some of the pills this morning Chronic back pain is controlled Review of Systems Review of Systems: all noted and negative except for above Constitutional: + fatigue and + anorexia Eyes: no problem reported Ear, Nose, Mouth, Throat: no problem reported Respiratory: no cough and no dyspnea Cardiovascular: no chest pain, no dyspnea and no edema Gastrointestinal: no abdominal pain, no nausea and no vomiting Genitourinary: no dysuria or no urinary frequency Musculoskeletal: Chronic low back pain Neurologic: no dizziness and no headache(s) Psychiatric: no depression and no anxiety Physical Exam Constitutional: + well hydrated and + frail appearing; no acute distress Eyes: PERRL, conjunctivae normal, anicteric sclerae ENMT: external ear and nose normal, oropharynx normal Respiratory: normal respiratory effort, lungs clear to auscultation Cardiovascular: Rate/Rhythm: regular rate and regular rhythm S1 S2 Gastrointestinal (Abdomen): normal bowel sounds, soft, nontender, no hepatosplenomegaly Musculoskeletal: No pedal edema Neurologic: PERRL, EOMI, accommodation nl, no face palsy, no dysarthria Psychiatric: A+Ox3, euthymic affect Results & Data Results & Data ([facility]) Vital Signs (Past 12 Hours) Vital Signs Temp Pulse Pulse Resp BP Pulse Ox 05/01/21 07:00 36.5 C 79 18 109/72 96 05/01/21 06:20 71 05/01/21 03:36 36.6 C 79 18 108/70 97 05/01/21 00:32 85
[2021-05-01] MEDS: ENOXAPARIN INJ 40 MG/0.4 ML SYR SQ SCH (20:32)
[2021-05-02] MEDS: CHLORASEPTIC 1.4% SOLN 180 ML BTL MT PRN (07:45)
[2021-05-02] MEDS: oxyCODONE HCL IR 5 MG TAB (IMMEDIATE RELEASE) PO PRN (08:39)
[2021-05-02] MEDS: MAGNESIUM OXIDE 400 MG TAB PO SCH (08:45)
[2021-05-02] MEDS: PANTOprazole 40 MG TAB PO SCH (08:45)
[2021-05-02] MEDS: THIAMINE HCL 100 MG TAB PO SCH (08:45)
[2021-05-02] MEDS: ACETAMINOPHEN 325 MG TAB PO PRN (08:45)
[2021-05-02] MEDS: LORazepam 1 MG TAB PO SCH (08:45)
[2021-05-02] MEDS: FERROUS SULFATE 325 MG TAB PO SCH (08:45)
--- NOTE | 2021-05-02 11:28 | Discharge Summary ---
Date of Service May 02, 2021 Admission HPI Per Admitting Provider This is a 75-year-old male with PMH of history of remote alcohol use with history of esophageal varices, presence of IVC filter, hypertension, hyperlipidemia, anxiety, history of celiac disease, chronic lower back pain and other medical problems listed below who presents with worsening nausea, vomiting and diarrhea over the past few days. Endorses intermittent nausea, vomiting and diarrhea over the past 2 months. Also with unintentional weight loss of approximately 40 pounds over past 1.5 years per recent PCP note. Palpable mass on R abdominal wall noticed in the past 2 months. Having difficulty remembering details, which has been getting worse lately. Denies any bright red blood per rectum or black stool. Mainly having diarrhea. Reduced appetite. Taking home meds as scheduled. Admission Exam Per Admitting Provider General Appearance: vitals as above, NAD, sitting up in bed, pleasant, appears chronically ill Head: normocephalic, atraumatic Eyes: normal inspection, PERRL, conjunctivae normal, anicteric sclerae ENT: external ear and nose normal, dry mucous membranes of oropharynx Neck: normal visual inspection, trachea midline, no thyromegaly Respiratory: normal respiratory effort, lungs clear to auscultation, no wheeze, rales, rhonchi. No accessory muscle use Cardiovascular: regular rate, rhythm, no murmur, normal peripheral pulses, no BLE edema. Vessels: no JVD Chest: normal inspection of chest Abdomen/GI: normal bowel sounds, soft, nontender, palpable mass RLQ Extremities/Musculoskeletal: no cyanosis or clubbing, extremities motor strength 5/5 Neurologic: PERRL, EOMI, accommodation nl, no face palsy, no dysarthria, CN's II-XI intact bilaterally and moves all extremities Psychiatric: A+Ox3, euthymic affect Skin: no rashes, normal color, warm/dry Principal Diagnosis Metastatic colorectal cancer with hepatic metastasis. Severe malnutrition/Cachexia Discharge Exam Constitutional + well hydrated and + frail appearing; no acute distress Speaks in whispers Eyes PERRL, conjunctivae normal, anicteric sclerae ENMT external ear and nose normal, oropharynx normal Respiratory normal respiratory effort, lungs clear to auscultation Cardiovascular Rate/Rhythm: regular rate and regular rhythm Gastrointestinal (Abdomen) Inspection/Auscultation: abdomen normal to inspection Percussion/Palpation: abdomen soft; abdomen nontender Palpable RLQ mass Musculoskeletal No pedal edema Neurologic PERRL, EOMI, accommodation nl, no face palsy, no dysarthria Psychiatric A+Ox3, euthymic affect Discharge Data Allergies Allergy/AdvReac Type Severity Reaction Status Date / Time gluten Allergy Intermediate Hx of Unverified 04/23/21 16:09 Celiac Disease Consultations 04/23/21 17:15 ED Decision to Admit Stat 04/23/21 18:51 Consult Gastroenterology Routine 04/23/21 18:55 Consult Oncology Routine 04/26/21 13:43 Consult Palliative Care Routine Procedures Performed Operation Date: 04/26/21 16:45 Actual Procedures p Flexible Sigmoidoscopy Biopsy - Ewelina Eid DO The perianal and digital rectal examinations were normal. Pertinent negatives include normal sphincter tone and no palpable rectal lesions. A frond-like/villous partially obstructing large mass was found at 10 cm proximal to the anus. The mass was circumferential. Oozing was present. Biopsies were taken with a cold forceps for histology. Verification of patient identification for the specimen was done by the physician and nurse using the patient's name and date. Estimated blood loss was minimal. Impression: - Malignant partially obstructing tumor at 10 cm proximal to the anus. Biopsied. Recommendation: - Await pathology results. - Follow up with oncology - Palliative medicine consult - If patient develops obstructive symptoms, may consider stent placement though mass is quite low. Ordered Studies 04/23/21 13:40 CT abd pelvis IV con only Stat Calcified granulomata of the left lung base with calcified hilar lymph nodes. Trace layering pleural effusions. Consolidation of the medial segment right middle lobe suggestive of atelectasis. No pneumatosis or pneumoperitoneum. Imaged inferior cardiac chambers are unremarkable with coronary artery calcifications. Unremarkable spleen and adrenal glands. Moderately distended gallbladder. There is a 1.3 cm cystic structure of the pancreatic tail with 11 mm cystic structure of the uncinate process of the pancreatic head, possibly cash posting representative of sidebranch IPMN's. No pancreatic ductal dilation or solid mass lesion identified. Innumerable hepatic coalescing lesions suggestive of metastasis with areas of suggested central necrosis measure up to 10 mm within the right hepatic lobe resulting in marginal nodularity of the liver suggestive of pseudocirrhosis. There are a few calcified nodules also noted throughout the liver. Trace perihepatic ascites. No portal vein occlusion identified. 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 Age-indeterminate occlusion of the superior mesenteric vein. 6 mm hypodensity of the superior pole left kidney is too small to characterize however suggestive of a probable cyst. Moderate urinary bladder distention with 2.5 mm posterior lateral diverticulum. Prostamegaly. Atherosclerosis of the tortuous aorta. Intrahepatic IVC filter. Coronary varices of the proximal stomach. Mild wall thickening of the duodenum. Lobular irregular mass of the rectum measures 4.2 x 2.8 x 5.2 cm. There is prominence of the perirectal vasculature with perirectal inflammatory stranding and several small perirectal nodules. No perforation or fluid collection. Colonic diverticulosis. Normal appendix. Tiny fat filled periumbilical hernia. Degenerative changes of the spine, pelvis and hips. No suspicious lytic or blastic osseous lesions identified. Healed chronic left-sided rib fractures. Numerous compression deformities throughout the thoracolumbar spine without retropulsion are favored to be chronic. IMPRESSION: 1. Rectal mass measuring over 5 cm in length is suggestive of colorectal carcinoma. No perforation or bowel obstruction. 2. 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 3. Trace pleural effusions. 4. 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 Age-indeterminate occlusion of the superior mesenteric vein. 5. Prostamegaly with chronic bladder outlet obstruction. 6. Additional findings as above. 04/23/21 19:08 CT head/brain wo con Routine No intra or extra-axial mass lesions are visualized. There is no CT evidence of acute cortical infarction. There is no evidence of midline shift. There is no acute hemorrhage. No acute depressed calvarial fractures are visualized. Redemonstration of ill-defined area of decreased attenuation within subcortical white matter of the right parietal lobe, was also seen during prior study likely representing old infarct. Stable mild atrophic changes of brain parenchyma are seen and associated with minimal ex vacuo dilatation of ventricles. Stable mild contour deformity of the proximal aspect of the occipital horn of the left lateral ventricle is again seen likely representing small arachnoid cyst, findings are unchanged since 2013. Coarse calcifications of the falx are unchanged since 2013. The best cisterna magna is again seen. Small polyp of the left maxillary sinus is seen. The rest of visualized paranasal sinuses and mastoid air cells are patent and well-aerated. IMPRESSION: 1. No acute intracranial hemorrhage, no midline shift or space occupying lesions. 2. Mild atrophic changes of brain parenchyma associated with minimal ex vacuo dilatation of ventricles. Possible small stable arachnoid cyst within left ventricle. 3. Unchanged infarct within right parietal lobe. 4. Best cisterna magna. 5. No acute depressed skull fractures. 6. The rest of findings as above. Hospital Course (1) Rectal mass: 75-year-old male with PMH of history of remote alcohol use with history of esophageal varices, presence of IVC filter, hypertension, hyperlipidemia, anxiety, history of celiac disease, chronic lower back pain and other medical problems listed below who presents with worsening nausea, vomiting and diarrhea over some days. CT abd/pelvis showed rectal mass measuring over 5 cm in length concerning for colorectal carcinoma. 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 with trace perihepatic ascites Status post flex sigmoidoscopy: Positive friable villous rectal mass CEA elevated Rectal Tissue biopsy: The findings represent an adenoma with at least high-grade dysplasia. Patient was evaluated by Oncology After discussions with patient, family, Oncologist and Palliative specialist; patient decided to transition to hospice care (2) Nausea vomiting and diarrhea: Crush pills to minimize difficulty swallowing Antiemetics prn (3) Acute hyponatremia: Na on admission 129 Received IVF Last Na 137 (4) Hypokalemia: Potassium 3.4 on admission Had been repleted (5) HTN (hypertension): Normotensive Lisinopril discontinued (6) Anxiety: Continue home Ativan (7) Chronic back pain: Continue oxycodone PRN Patient discharged to [facility] to transition to hospice Total Time Total Time Spent Total Time Spent (In Minutes): 50 Total Time Includes: Examination of the Patient, Discharge Planning and Medication Reconciliation Discharge Plan Discharge Items Patient Disposition: Transfer [facility] Reason For Visit: Nausea, vomiting, diarrhea Discharge Diagnosis: Metastatic colorectal cancer with hepatic metastasis. Severe malnutrition/Cachexia Activity: Resume your previous activity Non-emergency contact: Primary Care Provider Call non-emergency contact if: you have any medication questions Follow-up/Referrals: Bakari Cosby MD [Primary Care Provider] - Diet: Low Fiber Diet Comment: Minced and moist diet with aspiration precautions Addtl Attending Provider Instructions: Shayla. You came to the hospital complaining of nausea, vomiting and diarrhea. You were evaluated and found to have a rectal mass with metastatic lesions in the liver. You had a flexible sigmoidoscopy discopathy and biopsy. Biopsy revealed adenoma with high-grade dysplasia. You were evaluated by oncology. Due to poor prognosis, you opted for transition to hospice care. You are being discharged to a nursing facility for hospice care. It was a pleasure taking care of you Pending Studies at Discharge: No Stand-Alone Forms: My [facility] [address] Skilled Items Patient informed of condition?: Yes DNR: Yes Discharge Level of Care: Skilled Communicable Disease: No Discharge Prognosis: Stable Lines: None Urinary Catheter: No Medications and DC Order Prescriptions: Continued thiamine HCl (vitamin B1) [Vitamin B-1] 100 mg Tablet 100 mg PO DAILY RF: 0 omeprazole 40 mg capsule,delayed release(DR/EC) 40 mg PO DAILY RF: 0 ferrous sulfate 325 mg (65 mg iron) Tablet 325 mg PO DAILY RF: 0 albuterol sulfate 90 mcg/actuation Hfa Aerosol Inhaler 2 puff INHALATION Q4H PRN (Reason: Shortness Of Breath) RF: 0 magnesium oxide 400 mg magnesium Tablet 400 mg PO DAILY RF: 0 lorazepam 1 mg tablet 1 mg PO BID Qty: 10 RF: 0 oxycodone 5 mg tablet 5 mg PO Q6H PRN (Reason: Pain (severe)) Qty: 20 RF: 0 Discontinued lisinopril 5 mg tablet 5 mg PO DAILY RF: 0 Discharge Orders: Discharge Order (Routine); Ordered 05/02/21 Ordered By: Carlie Bryant Admission Data Admit Date/Time: 04/23/21 17:26 Attending Provider: Carlie Bryant I. Admit Provider: Lance Brown Primary Care Provider: Bakari Cosby Other Providers: Jack Miranda ; [place], ; [place] ; Lance Brown ; Joe Glaser ; Avinash Duarte V. ; Daphnie Bowens Other Interventions: Discharge Summary Assessment (RN) Last Done: 05/02/21 11:43
== END 2021-05-02 14:43 | DRG 374 ==
LOC: ED 11:48 → SUATTDRO 17:26 → 2W 17:26 → 3N 05-02 01:19
DX: E78.5 Hyperlipidemia, unspecified; Z95.828 Presence of other vascular implants and grafts; C20 Malignant neoplasm of rectum; E87.6 Hypokalemia; Z87.891 Personal history of nicotine dependence; E88.09 Other disorders of plasma-protein metabolism, not elsewhere classified; R11.2 Nausea with vomiting, unspecified; M54.9 Dorsalgia, unspecified; R64 Cachexia; I85.00 Esophageal varices without bleeding; E86.0 Dehydration; Z86.711 Personal history of pulmonary embolism; F41.9 Anxiety disorder, unspecified; E43 Unspecified severe protein-calorie malnutrition; C78.7 Secondary malignant neoplasm of liver and intrahepatic bile duct; F10.21 Alcohol dependence, in remission; R18.8 Other ascites; K21.00 Gastro-esophageal reflux disease with esophagitis, without bleeding; E87.1 Hypo-osmolality and hyponatremia; I10 Essential (primary) hypertension